=== PATIENT | female | born 1995 | race Two or more races ===

== ENCOUNTER 2020-09-20 15:26 | Outpatient (REF) | payer OTHER, SELFPAY | END 2020-09-20 15:27 | disposition home or self-care (01) | LOC: HO.LAB 15:26 | PROVIDERS: Visit Provider Internal Medicine | DX: Z20.828 Contact with and (suspected) exposure to other viral communicable diseases (principal) | CPT/HCPCS: 87635 ==

== ENCOUNTER 2020-10-07 15:14 | Outpatient (REF) | payer OTHER, SELFPAY | END 2020-10-07 15:15 | disposition home or self-care (01) | LOC: HO.LAB 15:14 | PROVIDERS: Visit Provider Internal Medicine | DX: Z20.828 Contact with and (suspected) exposure to other viral communicable diseases (principal) | CPT/HCPCS: C9803; U0003 ==

== ENCOUNTER 2020-11-20 12:26 | Emergency (ER) | payer OTHER, SELFPAY ==
[2020-11-20 12:45] VITALS: BP 140/84; PULSE 82; RESP 16; TEMP 36.9; O2SAT 96; BMI 32.4
--- NOTE | 2020-11-20 13:33 | PC.NURSE ---
LYNN ALVAREZ AT BEDSIDE WITH DENTAL ASSOCIATE PRESENT
--- NOTE | 2020-11-20 13:47 | XR_ITS ---
EXAMINATION: XR CHEST CLINICAL INFORMATION: Left-sided posterior thoracic COMPARISON: None TECHNIQUE: 2 views of the chest were obtained. FINDINGS: No significant abnormality is noted involving the heart, lungs, mediastinum, bony thorax or soft tissues. XR/XR chest 2V IMPRESSION: Unremarkable examination.
--- NOTE | 2020-11-20 15:12 | ED.BACK ---
HPI - Back Pain/Injury General Chief Complaint: Back Pain/Injury Stated Complaint: shoulder pain Time Seen by Provider: 11/20/20 13:43 Source: patient Mode of arrival: ambulatory Limitations: no limitations History of Present Illness HPI Narrative: 25-year-old female denies Stauffer for past medical history presenting complaint of mid left-sided back pain worsening with certain positions and aches. States she has similar type symptoms in the past with full muscle but also with pneumonia in the past. Denies any cough or URI symptoms. No fever. No chest pain shortness of breath. No abdominal pain nausea vomiting diarrhea. No GI / symptoms. MD elicited complaint: back pain Pertinent past history: prior back pain Onset (ago): day(s) Timing: intermittent Severity: mild Similar Symptoms Previously: Yes Radiation: none Relieving factors: none Associated symptoms: denies other symptoms Work related injury: No Related Data Previous Rx's Medication Instructions Recorded naproxen 500 mg PO BID PRN #20 tab 11/20/20 naproxen 500 mg PO BID PRN #20 tab 11/20/20 Allergies Allergy/AdvReac Type Severity Reaction Status Date / Time acetaminophen [From PERCOCET] Allergy Unknown RASH Unverified 08/15/20 19:46 oxycodone [From PERCOCET] Allergy Unknown RASH Unverified 08/15/20 19:46 oxycodone Allergy Unknown Uncoded 08/01/20 00:00 Review of Systems Review of Systems: Constitutional: No Weight loss, No Fever, No Chills, No Night Sweats, No Fatigue, No Malaise ENT/Mouth: No Hearing loss, No Ear Pain, No Nasal Congestion, No Sinus Pain, No Hoarseness, No sore throat, No Rhinorrhea, No Swallowing Difficulty Eyes: No Eye Pain, No Swelling, No Redness, No Foreign Body, No Discharge, No Vision Changes Cardiovascular: No Chest Pain, No SOB, No Dyspnea on Exertion, No Orthopnea, No Edema, No Palpitations Respiratory: No Cough, No Sputum, No Wheezing, No Smoke Exposure, No Dyspnea Gastrointestinal: No Nausea, No Vomiting, No Diarrhea, No Constipation, No abdominal Pain, No Hematochezia, No Melena Genitourinary: no irregular bleeding, No Dysuria, No Urinary Frequency, No Hematuria, No Urinary Incontinence, No Urgency, No Flank Pain, No Urinary Flow Changes, No Hesitancy Musculoskeletal: No joint pain, No Myalgias, No Joint Swelling, as noted in HPI Skin: No Skin Lesions, No rash Neuro: No Weakness, No Numbness, No Paresthesias, No Loss of Consciousness, No Dizziness, No Headache Psych: No Social Issues Heme/Lymph: No Bruising, No Bleeding,No Lymphadenopathy Endocrine: No Polyuria, No Polydipsia, No Temperature Intolerance Yes all other systems are reviewed and are negative [facility] Past Medical History Surgical History (Updated 11/20/20 @ 12:49 by Sonam Mitchell RN) History of cholecystectomy Social History Social History Advance Directives: No Advance Directives Information Provided: No Physical Exam Vital Signs: Vital Signs: Last Vital Signs Temp 98.4 F 11/20/20 12:45 Pulse 82 11/20/20 12:45 Resp 16 11/20/20 12:45 BP 140/84 H 11/20/20 12:45 Pulse Ox 96 11/20/20 12:45 Body Mass Index 32.4 Reviewed Const: General: cooperative and healthy appearing; No acute distress or intoxicated appearing Nutritional Appearance: average body habitus Orientation/consciousness: patient oriented x3 HENMT: Head: Yes normal to inspection Ears: hearing grossly normal bilaterally Eyes: General: appearance normal, both eyes and all related structures Visual Velázquez: normal visual velázquez by confrontation Neck: Neck: Yes normal visual inspection, No positive Brudzinski's sign, No positive Kernig's sign and No tender Thyroid: Thyroid normal Chest: Chest palpation & inspection: normal inspection of the chest Resp: Effort & Inspection: normal respiratory effort Cardio: Jugular venous distension: no JVD Rhythm: regular rhythm Heart sounds: S1 normal heart sound present and S2 normal heart sound present GI: Inspection: Yes normal to inspection Percussion: Yes normal to percussion Auscultation: normal bowel sounds : General: Yes no CVA tenderness Back/Spine/Pelvis: Back: no CVA tenderness Back/spine/pelvis image: 1. Diffuse reproducible paraspinal muscle pain. No midline, step-off. No obvious induration or rash. Pain is reproducible with palpation and some movement. Skin: General skin exam: no rashes or lesions noted Neuro: General: patient oriented x3 Extrem: General: Yes normal to inspection MDM - Back Pain/Injury Differential Diagnosis Differential diagnosis: Likely strain of lumbar region; Unlikely lumbar radiculopathy, sciatica, renal colic, pyelonephritis, thoracic back pain, AAA and discitis Medical Records Attestation: I reviewed the patient's medical records. Lab Data Attestation: I reviewed the patient's lab results. Imaging Data Chest x-ray: Radiologist's impression: Lucas Mercado 25 F 1995 [place] [id number] XRay Report Signed Patient: Ramos Mercado#: [id number] : 1995Acct:[id number] Age/Sex: 25 / FADM Date: 11/20/20 Loc: HO.ED Attending Dr: Ordering Physician: Rigoberto Grossman NP Date of Service: 11/20/20 Procedure(s): XR chest 2V Accession Number(s): [id number] cc: Rigoberto Grossman NP~ EXAMINATION: XR CHEST CLINICAL INFORMATION: Left-sided posterior thoracic COMPARISON: None TECHNIQUE: 2 views of the chest were obtained. FINDINGS: No significant abnormality is noted involving the heart, lungs, mediastinum, bony thorax or soft tissues. XR/XR chest 2V IMPRESSION: Unremarkable examination. Dictated By:BLANQUITA EDMONDS MD Signed By:<Electronically signed by BLANQUITA EDMONDS MD in OV>11/20/20 1406 DD/ 1347 TD/TT: Client Services Account Manager: Discharge Plan Discharge Clinical Impression: Thoracic back pain Patient Disposition: Home, Self-Care Instructions: Thoracic Back Strain (ED) Additional Instructions: Warm compresses Gentle stretching Naproxen as prescribed Return if any concerns or worsening symptoms Otherwise follow up with your primary care doctor as discussed Thank you Prescriptions: New naproxen 500 mg tablet 500 mg PO BID PRN (Reason: pain) Qty: 20 RF: 0 naproxen 500 mg tablet 500 mg PO BID PRN (Reason: pain) Qty: 20 RF: 0 Referrals: Physician,Unknown [Primary Care Provider] - 1 week (Primary care doctor) Interventions: ED Discharge Assessment Last Done: 11/20/20 15:21 Discharge Date/Time: 11/20/20 15:22
== END 2020-11-20 15:22 | disposition home or self-care (01) ==
PROVIDERS: Emergency Provider Emergency Medicine
DX: M54.6 Pain in thoracic spine (principal)
CPT/HCPCS: 71046; 99283

== ENCOUNTER 2021-07-27 12:41 | Emergency (ER) | payer OTHER, SELFPAY ==
[2021-07-27 13:03] VITALS: PULSE 81; RESP 17; TEMP 36.8; O2SAT 98; BMI 30.7
--- NOTE | 2021-07-27 14:05 | ED.BACK ---
HPI - Back Pain/Injury General Chief Complaint: Back Pain/Injury Stated Complaint: back pain Time Seen by Provider: 07/27/21 14:05 Source: patient Mode of arrival: ambulatory Limitations: no limitations History of Present Illness HPI Narrative: 25 y/o female presenting with right lower back pain and middle right back pain after she lifted her 4 yo son about 2 weeks ago. The pain has been on/off for the 2 weeks. Worse with movement. She felt a spasm in her back as soon as she tried lifting her son that day and it has been recurring when she tries to bend or lift anything heavy. She has not taken any medications for the pain or used any ice or heat to the area. MD elicited complaint: back pain and back injury Onset (ago): week(s) (2) Timing: intermittent and progressively worsening Severity: moderate Similar Symptoms Previously: No Quality: aching and spasming Location: right lower back and right upper back Radiation: none Exacerbating factors: movement and lifting Relieving factors: sitting upright Context: while lifting Associated symptoms: denies other symptoms Work related injury: No Related Data Previous Rx's Medication Instructions Recorded naproxen 500 mg tablet 500 mg PO BID PRN #20 tab 11/20/20 naproxen 500 mg tablet 500 mg PO BID PRN #20 tab 11/20/20 cyclobenzaprine 5 mg tablet 5 mg PO TID PRN #14 tab 07/27/21 ibuprofen 600 mg tablet 600 mg PO Q8H PRN #14 tab 07/27/21 lidocaine 5 % topical patch 1 patch TOPICAL DAILY #15 ea 07/27/21 (Lidoderm) Allergies Allergy/AdvReac Type Severity Reaction Status Date / Time acetaminophen [From PERCOCET] Allergy Unknown RASH Verified 07/27/21 13:03 oxycodone [From PERCOCET] Allergy Unknown RASH Verified 07/27/21 13:03 Review of Systems Review of Systems: Constitutional: No Fever, No Chills s Cardiovascular: No Chest Pain, No SOB Gastrointestinal: No Nausea, No Vomiting, No Diarrhea, No abdominal Pain Genitourinary: No urinary incontinence, no hematuria Musculoskeletal: No joint pain, + Myalgias Skin: No Skin Lesions, No rash Neuro: No Weakness, No Numbness Psych: No Anxiety/Panic, No Depression Heme/Lymph: No Bruising, No Lymphadenopathy PMFSH Past Medical History Surgical History History of cholecystectomy Social History Social History Advance Directives: Yes Advance Directives Information Provided: Yes Advance Directives on File: No Patient : No Physical Exam Vital Signs: Vital Signs: Last Vital Signs Temp 98.2 F 07/27/21 13:03 Pulse 81 07/27/21 13:03 Resp 17 07/27/21 13:03 Pulse Ox 98 07/27/21 13:03 Body Mass Index 30.7 Appearance: Alert. Oriented X3. No acute distress. Eyes: Pupils equal, round and reactive to light. ENT: Pharynx normal. Neck: Normal inspection. Neck supple. CVS: Normal heart rate and rhythm. Pulses normal. Respiratory: No respiratory distress. Breath sounds normal. Abdomen: Soft and nontender. +BS x4 Back: upper lumbar and lower thoracic soft tissue tenderness with some palpable muscle spasm. no CVA tenderness. Skin: Skin warm and dry. Normal skin color. Normal skin turgor. No rashes. Extremities: No lower extremity edema. Normal inspection and palpation of bilateral shoulders. normal active and passive ROM. Neuro: Oriented X 3. No motor deficit. No sensory deficit. Ambulates with steady gait. Course Course Course Narrative: 25 y/o female presenting with right sided back pain after lifting her 4 yo 2 weeks ago. Injury seems to be waxing and waning. Discussed expected course and management of back strain. Will give symptomatic treatment with NSAID, muscle relaxer and lidoderm. She is stable for d/c home with supportive care. Discharge Plan Discharge Clinical Impression: Strain of lumbar region Qualifiers: Encounter type: initial encounter Qualified Code(s): S39.012A - Strain of muscle, fascia and tendon of lower back, initial encounter Patient Disposition: Home, Self-Care Instructions: Low Back Strain (ED), Lower Back Exercises (ED) Additional Instructions: Your pain is most likely due to muscle strain. No bending, lifting or twisting. Use ice several times per day for 20 minutes at a time for the next 48 hours and then change to heat. Take medications as prescribed to help with pain and discomfort. Follow up with your Primary Care Doctor this week. If your pain worsens, if you develop new numbness, tingling, weakness, loss of function or incontinence call 911 or come back to the ER right away for evaluation. Prescriptions: New lidocaine [Lidoderm] 5 % adhesive patch,medicated 1 patch topical DAILY Qty: 15 RF: 0 ibuprofen 600 mg tablet 600 mg PO Q8H PRN (Reason: pain) Qty: 14 RF: 0 cyclobenzaprine 5 mg tablet 5 mg PO TID PRN (Reason: muscle spasm) Qty: 14 RF: 0 No Action naproxen 500 mg tablet 500 mg PO BID PRN (Reason: pain) Qty: 20 RF: 0 naproxen 500 mg tablet 500 mg PO BID PRN (Reason: pain) Qty: 20 RF: 0 Interventions: ED Discharge Assessment Last Done: 07/27/21 14:25 Discharge Date/Time: 07/27/21 14:25
== END 2021-07-27 14:25 | disposition home or self-care (01) ==
PROVIDERS: Emergency Provider Emergency Medicine
DX: S39.012A Strain of muscle, fascia and tendon of lower back, initial encounter (principal); M54.6 Pain in thoracic spine; X50.0XXA Overexertion from strenuous movement or load, initial encounter; X50.1XXA Overexertion from prolonged static or awkward postures, initial encounter; X50.9XXA Other and unspecified overexertion or strenuous movements or postures, initial encounter; Y93.9 Activity, unspecified; Y92.9 Unspecified place or not applicable; Y99.9 Unspecified external cause status; Z79.899 Other long term (current) drug therapy
CPT/HCPCS: 99283

== ENCOUNTER 2021-08-05 09:30 | Emergency (ER) | payer OTHER, SELFPAY ==
[2021-08-05 09:39] VITALS: BP 127/94; BP 130/90; PULSE 92; PULSE 98; RESP 16; TEMP 36.7; O2SAT 100; O2SAT 99; BMI 28.5
[2021-08-05] MEDS: Cyclobenzaprine HCl 5 MG TABLET PO (09:57)
[2021-08-05] MEDS: Ketorolac Tromethamine 15 MG/ML VIAL 30 MG IM (09:58)
[2021-08-05] MEDS: Lidocaine 4 % Patch ADH..PATCH 1 PATCH TRANSDERMA (09:59)
--- NOTE | 2021-08-05 10:11 | ED.GENADULT ---
HPI - General Adult General Chief complaint: General Medical Stated complaint: BACK PAIN Time Seen by Provider: 08/05/21 09:44 Source: patient Mode of arrival: ambulatory History of Present Illness HPI narrative: 25-year-old female with no significant past medical history presenting to the ED complaining of a left-sided neck/shoulder/upper back/scapular pain radiating down left arm S/P lifting body weight trying to get out of bed this morning. Admits to similar symptoms in the past. Pain worse with movement. direct trauma/falls or injury. Reports associated paresthesias. Denies weakness, urinary incontinence/retention, CP Onset (ago): hour(s) Related Data Previous Rx's Medication Instructions Recorded naproxen 500 mg tablet 500 mg PO BID PRN #20 tab 11/20/20 naproxen 500 mg tablet 500 mg PO BID PRN #20 tab 11/20/20 cyclobenzaprine 5 mg tablet 5 mg PO TID PRN #14 tab 07/27/21 ibuprofen 600 mg tablet 600 mg PO Q8H PRN #14 tab 07/27/21 lidocaine 5 % topical patch 1 patch TOPICAL DAILY #15 ea 07/27/21 (Lidoderm) cyclobenzaprine 5 mg tablet 5 mg PO Q8H PRN 5 Days #14 tab 08/05/21 lidocaine 5 % topical patch 1 patch TOPICAL DAILY PRN #30 ea 08/05/21 (Lidoderm) MDD remove after 12 hours naproxen 500 mg tablet 500 mg PO BID PRN 10 Days #20 tab 08/05/21 Allergies Allergy/AdvReac Type Severity Reaction Status Date / Time acetaminophen [From PERCOCET] Allergy Unknown RASH Verified 07/27/21 13:03 oxycodone [From PERCOCET] Allergy Unknown RASH Verified 07/27/21 13:03 Review of Systems Review of Systems: Constitutional: No Fever, No Chills ENT/Mouth: No Ear Pain, No sore throat, No Rhinorrhea, No Swallowing Difficulty Cardiovascular: No Chest Pain, No SOB Respiratory: No Cough Gastrointestinal: No Nausea, No Vomiting, No Abdominal pain Genitourinary: No Dysuria, No Urinary Frequency, No Hematuria, No Urinary Incontinence/retention Musculoskeletal: +joint pain, No Myalgias, No Joint Swelling Skin: No Skin Lesions, No rash Neuro: No Weakness, No Numbness, No Paresthesias Yes all other systems are reviewed and are negative Neurologic: Denies Sensory deficit (Neuro) [facility] Past Medical History Attestation statement: The following information was validated with the patient. Surgical History History of cholecystectomy Social History Social History Advance Directives: No Advance Directives Information Provided: No Patient : No Physical Exam Vital Signs: Vital Signs: Last Vital Signs Temp 98.1 F 08/05/21 09:39 Pulse 92 08/05/21 09:39 Resp 16 08/05/21 09:39 BP 127/94 H 08/05/21 09:39 Pulse Ox 99 08/05/21 09:39 Body Mass Index 28.5 Const: General: cooperative and healthy appearing Orientation/consciousness: patient oriented x3 Limitations: no limitations HENMT: Head: Yes normal to inspection and Yes atraumatic Ears: hearing grossly normal bilaterally General nose exam: Normal external nose present Face and sinus: Yes normal facial exam Eyes: General: appearance normal, both eyes and all related structures EOM: EOMs intact bilaterally Neck: Other: Midline cervical spinous tenderness to palpation. + left-sided paraspinal/MSK neck tenderness to palpation and left trapezius muscle tenderness to palpation Neck: Yes normal visual inspection Resp: Effort & Inspection: normal respiratory effort and no respiratory distress Cardio: Rate: regular rate Peripheral pulses: radial pulses present GI: Inspection: Yes normal to inspection Palpation (GI): Soft to palpation, nontender, no guarding and not rigid Back/Spine/Pelvis: Other: No midline thoracic/lumbar spinous tenderness or step-offs/deformity. + left-sided upper thoracic/scapular tenderness to palpation reproducing subjective complaints Skin: Rashes: no rashes Wounds: no wounds Neuro: General: patient oriented x3, tone normal and moves all extremities Motor exam (neuro): 5/5 motor strength present throughout Sensory Exam: No Sensory deficit (Neuro) Extrem: General: Yes normal to inspection Medical Decision Making MDM Narrative Medical decision making narrative: 25-year-old female with no significant past medical history presenting to the ED complaining of a left-sided neck/shoulder/upper back/scapular pain radiating down left arm S/P lifting body weight trying to get out of bed this morning. On exam VSS, NAD/ill-appearing, physical exam as above. Likely MSK pain/strain/spasming. Low concern for cauda equina, cord compression, ACS, pneumonia, or PE. Plan: Symptomatic treatment, anticipate DC home Discharge Plan Discharge Clinical Impression: Acute neck pain Back pain, thoracic Qualifiers: Chronicity: acute Back pain laterality: left Qualified Code(s): M54.6 - Pain in thoracic spine Patient Disposition: Home, Self-Care Instructions: Neck Pain (ED), Thoracic Pain (ED) Additional Instructions: Your pain is likely musculoskeletal Flexeril is a muscle relaxer, take at night as it makes you drowsy, do not drive, drink alcohol, or operate machinery while taking it Naproxen as an anti-inflammatory / pain medication, take with food Lidoderm patches are numbing patches, apply to painful area If symptoms persist or worsen, pain becomes unbearable, you developed urinary retention or incontinence, or weakness return to the ED Prescriptions: New lidocaine [Lidoderm] 5 % adhesive patch,medicated 1 patch topical DAILY MDD remove after 12 hours PRN (Reason: pain) Qty: 30 RF: 0 naproxen 500 mg tablet 500 mg PO BID PRN (Reason: pain) 10 Days Qty: 20 RF: 0 cyclobenzaprine 5 mg tablet 5 mg PO Q8H PRN (Reason: pain (scale score 7-10)) 5 Days Qty: 14 RF: 0 No Action lidocaine [Lidoderm] 5 % adhesive patch,medicated 1 patch topical DAILY Qty: 15 RF: 0 ibuprofen 600 mg tablet 600 mg PO Q8H PRN (Reason: pain) Qty: 14 RF: 0 cyclobenzaprine 5 mg tablet 5 mg PO TID PRN (Reason: muscle spasm) Qty: 14 RF: 0 naproxen 500 mg tablet 500 mg PO BID PRN (Reason: pain) Qty: 20 RF: 0 naproxen 500 mg tablet 500 mg PO BID PRN (Reason: pain) Qty: 20 RF: 0 Referrals: Physician,Unknown [Primary Care Provider] - 2 days
== END 2021-08-05 10:36 | disposition home or self-care (01) ==
PROVIDERS: Emergency Provider Emergency Medicine
DX: M54.2 Cervicalgia (principal); M54.6 Pain in thoracic spine
CPT/HCPCS: 96372; 99283; 99284; J1885

== ENCOUNTER 2022-09-22 14:49 | Emergency (ER) | payer MEDICAID, SELFPAY ==
[2022-09-22 16:36] VITALS: BP 116/72; PULSE 68; RESP 18; TEMP 36.2; O2SAT 99; BMI 31.6
== END 2022-09-22 21:16 | disposition left against medical advice (07) ==
LOC: HO.ED 21:00
PROVIDERS: Emergency Provider Emergency Medicine; PCP Internal Medicine
DX: R51.9 Headache, unspecified (principal); R10.9 Unspecified abdominal pain
CPT/HCPCS: 99281

== ENCOUNTER 2022-09-30 14:25 | Outpatient (REF) | payer MEDICAID, SELFPAY ==
[2022-09-30 14:45] LABS: MANUAL DIFF FLAG NO
[2022-09-30 15:00] LABS: Basophils Percent Auto 0.5 % (0-2); Eosinophils Absolute Auto 0.2 X10*3/uL (0.0-0.4); Eosinophils Percent Auto 2.2 % (0-4); Hematocrit 38.6 % (37.0-47.0); Hemoglobin 12.8 g/dl (12.0-16.0); Imm Gran Abs Auto 0.02 X10*3/uL (0.00-0.03); Imm Gran Pct Auto 0.3 % (0.0-0.4); Lymphocytes Absolute Auto 2.7 X10*3/uL (1.2-4.9); Lymphocytes Percent Auto 35.6 % (20-40); Mean Corpuscular HGB Conc 33.2 g/dl (31.0-35.0); Mean Corpuscular Hemoglobin 29.4 pg (27.0-33.0); Mean Corpuscular Volume 88.7 fL (80.0-98.0); Monocytes Absolute Auto 0.6 X10*3/uL (0.1-1.2); Neutrophils Percent Auto 53.4 % (45-73); Platelet Count 251 X10*3/uL (160-400); Red Blood Count 4.35 X10*6/uL (4.20-5.50); Red Cell Distribution Width 12.3 % (11.0-16.0); White Blood Count 7.6 X10*3/uL (4.8-10.8)
[2022-09-30 15:31] LABS: Alanine Aminotransferase 15 U/L (0-31); Albumin Level 4.3 g/dL (3.5-5.0); Alkaline Phosphatase 51 U/L (39-117); Anion Gap 11 (12-20); Aspartate Amino Transferase 16 U/L (5-31); Bilirubin Total 0.6 mg/dL (0.0-1.0); Blood Urea Nitrogen 15 mg/dL (9-16); Calcium 9.7 mg/dL (8.4-10.2); Carbon Dioxide 28 mmol/L (22-29); Chloride 104 mmol/L (96-108); Estimated Glomerular Filt Rate > 60; Glucose Random 84 mg/dL (60-115); Potassium 4.1 mmol/L (3.3-5.1); Rheumatoid Factor < 15.0 IU/mL (<15.0); Sodium 139 mmol/L (135-145); Total Protein 7.3 g/dL (6.5-8.0)
[2022-09-30 15:39] LABS: Erythrocyte Sedimentation Rate 7 MM/HR (0-20)
[2022-09-30 15:53] LABS: Thyroid Stimulating Hormone 1.75 uIU/mL (0.32-4.0)
[2022-09-30 18:20] LABS: CT PCR NOT DETECTED (Not Detect.); NG PCR NOT DETECTED (Not Detect.)
[2022-10-03 11:51] LABS: ANA Pattern 2 Nuclear, Homogeneous; ANA Titer 2 1:40 titer; Anti Nuclear Antibody Screen POSITIVE (NEGATIVE); Anti Nuclear Antibody Titer 1:40 titer
== END 2022-09-30 14:26 | disposition home or self-care (01) ==
LOC: HO.LAB 14:25
PROVIDERS: PCP Internal Medicine; Visit Provider Internal Medicine
DX: Z00.00 Encounter for general adult medical examination without abnormal findings (principal); M13.0 Polyarthritis, unspecified; Z11.3 Encounter for screening for infections with a predominantly sexual mode of transmission; Z12.4 Encounter for screening for malignant neoplasm of cervix
CPT/HCPCS: 80053; 84443; 85025; 85652; 86038; 86039; 86431; 87491; 87591

== ENCOUNTER 2023-11-14 00:29 | Emergency (ER) | payer MEDICAID, SELFPAY ==
--- NOTE | ~2023-11-14 | US_ITS ---
EXAMINATION: US PELVIS CLINICAL INFORMATION: Left lower quadrant abdominal pain COMPARISON: CT 11/14/2023. TECHNIQUE: Ultrasound of the pelvis is performed using both transabdominal and transvaginal transducers along with Doppler. Transvaginal imaging is performed due to inadequate visualization transabdominally. FINDINGS: Uterus: The uterus is anteverted, anteflexed and measures 7.8 x 3.1 x 4.8 cm. The double wall endometrial thickness is 2 mm. The uterus is smooth in contour and has normal myometrial echogenicity. No visible fibroid. Adnexa: Both ovaries are visualized. There is normal color flow to the adnexa. There is no ovarian torsion. There is no pelvic ascites or fluid collection. Right ovary lies midline posterior uterus and measures 3.8 x 2.1 x 2.9 cm with volume 12.0 mL. There is anechoic cyst measuring 3.0 x 1.8 x 2.5 cm. Left ovary measures 2.4 x 1.5 x 2.1 cm and volume 4.0 mL. There is normal arterial and venous color and Doppler flow seen to both ovaries. There is small amount of free fluid in cul-de-sac. US/US pelvic and transvaginal IMPRESSION: Small simple cyst right ovary. Unremarkable left ovary and uterus. Small amount of free fluid in the cul-de-sac.
--- NOTE | ~2023-11-14 | US_ITS ---
EXAMINATION: US PELVIS CLINICAL INFORMATION: Left lower quadrant abdominal pain COMPARISON: CT 11/14/2023. TECHNIQUE: Ultrasound of the pelvis is performed using both transabdominal and transvaginal transducers along with Doppler. Transvaginal imaging is performed due to inadequate visualization transabdominally. FINDINGS: Uterus: The uterus is anteverted, anteflexed and measures 7.8 x 3.1 x 4.8 cm. The double wall endometrial thickness is 2 mm. The uterus is smooth in contour and has normal myometrial echogenicity. No visible fibroid. Adnexa: Both ovaries are visualized. There is normal color flow to the adnexa. There is no ovarian torsion. There is no pelvic ascites or fluid collection. Right ovary lies midline posterior uterus and measures 3.8 x 2.1 x 2.9 cm with volume 12.0 mL. There is anechoic cyst measuring 3.0 x 1.8 x 2.5 cm. Left ovary measures 2.4 x 1.5 x 2.1 cm and volume 4.0 mL. There is normal arterial and venous color and Doppler flow seen to both ovaries. There is small amount of free fluid in cul-de-sac. US/US pelvic ovarian doppler IMPRESSION: Small simple cyst right ovary. Unremarkable left ovary and uterus. Small amount of free fluid in the cul-de-sac.
--- NOTE | ~2023-11-14 | CT_ITS ---
EXAMINATION: CT ABDOMEN AND PELVIS WITHOUT CONTRAST CLINICAL INFORMATION: Bilateral flank pain COMPARISON: Abdominal ultrasound June 29, [address] abdomen pelvis November 02, 2019 TECHNIQUE: Multidetector volumetric imaging was performed from the superior aspect of the liver through the pubic symphysis. Sagittal and coronal reformatted images were obtained on the technologist's workstation. This CT examination was performed using dose optimization techniques as appropriate, variously including the following: *Automated exposure control *Adjustment of mA and/or kV according to patient size (this includes techniques or standardized protocols for targeted exams where dose is matched to indication/reason for exam; i.e. extremities or head) *Use of iterative reconstruction technique DLP: 520 mGy-cm FINDINGS: Visualized lung bases are well aerated. The liver is normal in size. The gallbladder is surgically absent. The pancreas, spleen and adrenal glands are unremarkable. Symmetrically sized kidneys. No renal calculi or hydronephrosis of either kidney. Normal caliber loops of small and large bowel. Normal appendix. Mild colonic stool burden. There are a few mildly prominent but nonpathologically enlarged lymph nodes within the right lower abdomen, nonspecific. Normal caliber abdominal aorta. No retroperitoneal lymphadenopathy. The bladder is normal in appearance. Unremarkable CT appearance of the uterus. 2.5 x 2.9 x 3.0 cm hypodense structure abutting the posterior lower uterine segment/cervix, nonspecific. No gross free pelvic fluid. Shotty bilateral inguinal lymph nodes. No acute osseous abnormality. CT/CT abdomen pelvis wo IV con IMPRESSION: 1. No renal calculi or hydronephrosis of either kidney. 2. 3.0 cm hypodense structure abutting the posterior lower uterine segment/cervix. This is a nonspecific finding but may represent a a cystic adnexal structure. Further evaluation can be obtained with pelvic ultrasound as clinically indicated. 3. There are a few mildly prominent but nonpathologically enlarged lymph nodes within the right lower abdomen, nonspecific. Fleischner guidelines were followed.
--- NOTE | ~2023-11-14 | CT_ITS ---
EXAMINATION: CT HEAD WITHOUT CONTRAST CLINICAL INFORMATION: AMS, pain. COMPARISON: None available. TECHNIQUE: Contiguous axial imaging was performed from the skull base to vertex without intravenous administration of contrast. This CT examination was performed using dose optimization techniques as appropriate, variously including the following: *Automated exposure control *Adjustment of mA and/or kV according to patient size (this includes techniques or standardized protocols for targeted exams where dose is matched to indication/reason for exam; i.e. extremities or head) *Use of iterative reconstruction technique DLP: 671 mGy-cm FINDINGS: There is no acute intra-axial, extra-axial bleed, masses, collection or midline shift. No acute infarction evolution. The lund to white matter differentiation is maintained normal. The lateral ventricles are symmetrical in size and configuration without enlargement. Bone windows reveal no calvarial abnormality. There is no scalp soft tissue abnormality. Bilateral paranasal sinuses and mastoid air cells are well-aerated. CT/CT head/brain wo IV con IMPRESSION: No acute intracranial process seen.
[2023-11-14 00:33] VITALS: BP 146/80; PULSE 111; O2SAT 99
[2023-11-14 00:36] VITALS: BP 144/94; PULSE 103; RESP 18; TEMP 37.7; O2SAT 98; BMI 31.6
--- NOTE | 2023-11-14 01:08 | MHC.EDTECH ---
Patient brought into triage area,labs,SARS/FLU/RSV and a Urine were collected and sent to lab,patient brought back to the waiting room
[2023-11-14 01:18] LABS: MANUAL DIFF FLAG NO
[2023-11-14 01:19] LABS: Basophils Absolute Auto 0.1 X10*3/uL (0.0-0.2); Basophils Percent Auto 0.4 % (0-2); Eosinophils Percent Auto 0.2 % (0-4); Hematocrit 38.3 % (37.0-47.0); Hemoglobin 12.9 g/dl (12.0-16.0); Imm Gran Abs Auto 0.05 X10*3/uL (0.00-0.03); Imm Gran Pct Auto 0.3 % (0.0-0.4); Lymphocytes Absolute Auto 3.3 X10*3/uL (1.2-4.9); Lymphocytes Percent Auto 19.9 % (20-40); Mean Corpuscular HGB Conc 33.7 g/dl (31.0-35.0); Mean Corpuscular Hemoglobin 28.9 pg (27.0-33.0); Mean Corpuscular Volume 85.9 fL (80.0-98.0); Mean Platelet Volume 10.9 fL (9.4-12.3); Monocytes Absolute Auto 1.4 X10*3/uL (0.1-1.2); Monocytes Percent Auto 8.3 % (2-11); Neutrophils Absolute Auto 11.6 x10*3/uL (2.0-8.3); Neutrophils Percent Auto 70.9 % (45-73); Platelet Count 239 X10*3/uL (160-400); Red Blood Count 4.46 X10*6/uL (4.20-5.50); Red Cell Distribution Width 12.7 % (11.0-16.0); White Blood Count 16.4 X10*3/uL (4.8-10.8)
[2023-11-14 01:24] LABS: Appearance Urine Cloudy; Color Urine Yellow; Glucose Urine UA Negative (Negative); Leukocyte Esterase Urine Trace (Negative); Nitrite Urine Negative (Negative); PH 6.5 (5.0-9.0); Specific Gravity - Urine 1.015 (1.005-1.025); UMIC TRIGGER UACC YES; Urine Blood Negative (Negative); Urine Ketones Trace mg/dL (Negative); Urine Protein Negative (Neg-Trace)
[2023-11-14 01:26] LABS: UPreg QC Valid YES; Urine Pregnancy NEGATIVE (NEGATIVE)
[2023-11-14 01:27] LABS: Bacteria Urine Trace (None Seen); Hyaline Casts Urine 0-2 /LPF (0-2); RBC Urine 0-2 /HPF (0-2); UACC Culture Trigger YES
[2023-11-14 01:33] LABS: Alanine Aminotransferase 18 U/L (0-31); Albumin Level 4.2 g/dL (3.5-5.0); Alkaline Phosphatase 54 U/L (39-117); Anion Gap 13 (12-20); Aspartate Amino Transferase 18 U/L (5-31); Bilirubin Total 0.9 mg/dL (0.0-1.0); Blood Urea Nitrogen 8 mg/dL (9-16); Carbon Dioxide 21 mmol/L (22-29); Chloride 106 mmol/L (96-108); Creatinine Clr Calc Pharmacy 94.3; Estimated Glomerular Filt Rate > 60; Glucose Random 94 mg/dL (60-115); Potassium 3.3 mmol/L (3.3-5.1); Sodium 137 mmol/L (135-145); Total Protein 7.6 g/dL (6.5-8.0)
[2023-11-14 02:29] VITALS: BP 120/83; PULSE 100; RESP 18; TEMP 36.8; O2SAT 99
[2023-11-14 02:54] LABS: Influenza A PCR NEGATIVE (Negative); Influenza B PCR NEGATIVE (Negative); Resp Syncy Virus RNA Qual PCR NEGATIVE (Negative); SARS COV2 PCR INHOUSE NEGATIVE (Negative)
[2023-11-14 04:44] VITALS: BP 106/73; PULSE 94; RESP 18; TEMP 36.8; O2SAT 97
[2023-11-14 07:15] LABS: HCG Quantitative < 2 mIU/mL
--- NOTE | 2023-11-14 07:22 | ED.GENADULT ---
HPI - General Adult General Chief complaint: Abdominal Pain Stated complaint: FLANK PAIN Time Seen by Provider: 11/14/23 06:35 Source: patient and EMS Mode of arrival: EMS Limitations: other (Poor historian) History of Present Illness HPI narrative: 28-year-old female presents to the emergency department via ambulance for complaints of kidney pain for the past 12 hours she reports left-sided flank pain with radiation to her abdomen pain is intermittent, sharp, severe, patient has history of kidney stones and this feels similar. Patient also complaining of nausea, fatigue, malaise, congestion, sore throat. Denies recent sick contacts. Patient denies chest pain, shortness of breath, vomiting, diarrhea, vision changes, headache and weakness. Related Data Previous Rx's Medication Instructions Recorded naproxen 500 mg tablet 500 mg PO BID PRN pain #20 tabs 11/20/20 naproxen 500 mg tablet 500 mg PO BID PRN pain #20 tabs 11/20/20 cyclobenzaprine 5 mg tablet 5 mg PO TID PRN muscle spasm #14 07/27/21 tabs ibuprofen 600 mg tablet 600 mg PO Q8H PRN pain #14 tabs 07/27/21 lidocaine 5 % topical patch 1 patch topical DAILY #15 ea 07/27/21 (Lidoderm) cyclobenzaprine 5 mg tablet 5 mg PO Q8H PRN pain (scale score 08/05/21 7-10) 5 days #14 tabs lidocaine 5 % topical patch 1 patch topical DAILY PRN pain #30 08/05/21 (Lidoderm) ea naproxen 500 mg tablet 500 mg PO BID PRN pain 10 days #20 08/05/21 tabs ondansetron 4 mg disintegrating 4 mg PO Q6H PRN nausea and 11/14/23 tablet vomiting #14 tabs Allergies Allergy/AdvReac Type Severity Reaction Status Date / Time oxycodone [From PERCOCET] Allergy Unknown RASH Verified 11/14/23 00:49 Review of Systems Review of Systems: Constitutional : No Weight loss, No Fever, No Chills, No Fatigue, No Malaise ENT/Mouth : No sore throat, No Rhinorrhea Eyes: No Eye Pain, No Swelling, No Redness Cardiovascular : No Chest Pain, No SOB, No Dyspnea on Exertion, No Orthopnea, No Edema, No Palpitations Respiratory : No Cough, No Sputum, No Wheezing Gastrointestinal : No Nausea, No Vomiting, No Diarrhea, No Constipation, No abdominal Pain, No Hematochezia, No Melena Genitourinary : No Dysuria, No Urinary Frequency, No Hematuria, Musculoskeletal : No joint pain, No Myalgias, No Joint Swelling, + flank pain Skin : No Skin Lesions, No rash Neuro : No Weakness, No Numbness, No Dizziness, No Headache Psych : No Anxiety/Panic, No Depression All other systems reviewed and are negative Yes all other systems are reviewed and are negative [facility] Past Medical History Attestation statement: The following information was validated with the patient. Source: old records reviewed and nursing notes reviewed Surgical History History of cholecystectomy Social History Social History Advance Directives: No Advance Directives Information Provided: No Physical Exam ED Vital Signs: Vital Signs - 24 hr 11/14/23 00:36 11/14/23 02:29 11/14/23 02:29 Temperature 99.8 F 98.3 F 98.3 F Pulse Rate 103 H 100 100 Respiratory Rate 18 18 18 Blood Pressure 144/94 H 120/83 120/83 Pulse Oximetry 98 99 99 Oxygen Delivery Method Room Air Room Air Room Air 11/14/23 04:44 11/14/23 07:36 Temperature 98.3 F 98.2 F Pulse Rate 94 87 Respiratory Rate 18 16 Blood Pressure 106/73 120/82 Pulse Oximetry 97 97 Oxygen Delivery Method Room Air Room Air BMI result Body Mass Index 31.6 vss Appearance: Alert.? Oriented X3.? No acute distress.? Head: Normocephalic, atraumatic, no step-offs or deformities Eyes: Pupils equal, round and reactive to light.? ENT: Pharynx normal.? Neck: Normal inspection.? Neck supple.? CVS: Normal heart rate and rhythm.? Pulses normal.? Respiratory: No respiratory distress.? Breath sounds normal.? Abdomen: Soft and diffuse abdominal tender.? Skin: Skin warm and dry.? Normal skin color.? Normal skin turgor.? Extremities: No lower extremity edema.? No calf ttp. 5/5 strength to bilateral upper and lower extremities Back: No midline tenderness, no C-spine tenderness, full range of motion, no CVA tenderness bilaterally Neuro: Oriented X 3.? No motor deficit.? No sensory deficit. CN 2-12 intact Course Reevaluation(s) Reevaluation #1: CBC with leukocytosis 16.4, no left shift this could be reactive due to dry heaving/nausea/vomiting. Chemistry unremarkable. HCG negative. Transaminases normal. UA without infection. Urine negative. Patient's Monospot negative, strep negative, flu, COVID, RSV negative. CT abdomen and pelvis no renal calculi or hydronephrosis. 3 cm hypodense structure obstructing the posterior lower uterine segment/cervix nonspecific finding with could represent cystic adnexal structure. Ultrasound ordered. Pelvic ultrasound with small simple cyst right ovary. Unremarkable left ovary and uterus. Small amount of fluid in cul-de-sac. There is no ovarian torsion. Patient was sitting on the ground, crawling around the room, bizarre behavior, with vomiting, head CT ordered for altered mental status. Time: 10:48 Reevaluation #2: Zofran and additional pain meds ordered. Time: 12:14 Reevaluation #3: CT head unremarkable. Patient alert oriented x3. Patient has not had any more pain, nausea or vomiting. Patient to be discharged home with nausea medicine this is likely viral. Educated patient on diagnosis and treatment plan, answered all question, patient verbalizes understanding. At this time patient will be discharged home, advised to return with new or worsening symptoms. Educated on worrisome signs and symptoms and when to return. At this time I feel comfortable discharge home. Time: 13:35 Medications Administered Discontinued Medications Generic Name Dose Route Start Last Admin Trade Name Anastacio PRN Reason Stop Dose Admin Morphine Sulfate 2 mg 11/14/23 09:29 11/14/23 09:57 Morphine Sulfate 2 Mg/Ml Cartridge IVPUSH 11/14/23 09:30 2 mg ONCE ONE Administration Protocol Ondansetron HCl 4 mg 11/14/23 10:44 11/14/23 10:56 Ondansetron Hcl 4 Mg/2 Ml Vial IVPUSH 11/14/23 10:45 4 mg ONCE ONE Administration Medical Decision Making Medical Decision Making [facility] Narrative: 28-year-old female presents with complaints of left flank pain with radiation to abdomen, also reporting fatigue, malaise, congestion, sore throat. Physical exam diffuse abdominal tenderness. Normoactive bowel sounds. Concerns for viral illness versus renal calculi versus obstructing uropathy. Unlikely pancreatitis, cholecystitis, appendicitis, diverticulitis, obstruction. Will rule out strep throat although unlikely. Will also rule out mononucleosis, metabolic derangements, anemia, Plan at this time labs, imaging, urine. Patient is having episodes of vomiting while in the depart Differential Diagnosis Differential Diagnoses: The differential diagnosis associated with the presentation includes Concerns for viral illness versus renal calculi versus obstructing uropathy. Unlikely pancreatitis, cholecystitis, appendicitis, diverticulitis, obstruction. Will rule out strep throat although unlikely. Will also rule out mononucleosis, metabolic derangements, anemia, Admission/Observation Consideration of admission/observation: Escalation of care including admission/observation considered Lab Data MDM Lab Attestation statement: I reviewed the patient's lab results. 11/14/23 01:06 11/14/23 01:06 Labs: Lab Results 11/14/23 11/14/23 11/14/23 Range/Units 01:06 07:06 07:35 WBC 16.4 H (4.8-10.8) X10*3/uL RBC 4.46 (4.20-5.50) X10*6/uL Hgb 12.9 (12.0-16.0) g/dl Hct 38.3 (37.0-47.0) % MCV 85.9 (80.0-98.0) fL MCH 28.9 (27.0-33.0) pg MCHC 33.7 (31.0-35.0) g/dl RDW 12.7 (11.0-16.0) % Plt Count 239 (160-400) X10*3/uL MPV 10.9 (9.4-12.3) fL Immature Gran % (Auto) 0.3 (0.0-0.4) % Neut % (Auto) 70.9 (45-73) % Lymph % (Auto) 19.9 L (20-40) % Garfield % (Auto) 8.3 (2-11) % Eos % (Auto) 0.2 (0-4) % Baso % (Auto) 0.4 (0-2) % Lymph # (Auto) 3.3 (1.2-4.9) X10*3/uL Garfield # (Auto) 1.4 H (0.1-1.2) X10*3/uL Eos # (Auto) 0.0 (0.0-0.4) X10*3/uL Baso # (Auto) 0.1 (0.0-0.2) X10*3/uL Abs Immat Gran (auto) 0.05 H (0.00-0.03) X10*3/uL Absolute Neuts (auto) 11.6 H (2.0-8.3) x10*3/uL Absolute Nucleated RBC 0.000 (0.0-0.012) X10*3/uL Nucleated RBC % (auto) 0.0 (0.0-0.2) /100WBC Sodium 137 (135-145) mmol/L Potassium 3.3 (3.3-5.1) mmol/L Chloride 106 (96-108) mmol/L Carbon Dioxide 21 L (22-29) mmol/L Anion Gap 13 (12-20) BUN 8 L (9-16) mg/dL Creatinine 0.69 (0.5-1.4) mg/dL Estim Creat Clear Calc 94.3 Estimated GFR > 60 Random Glucose 94 (60-115) mg/dL Calcium 9.0 D (8.4-10.2) mg/dL Total Bilirubin 0.9 (0.0-1.0) mg/dL AST 18 (5-31) U/L ALT 18 (0-31) U/L Alkaline Phosphatase 54 (39-117) U/L Total Protein 7.6 (6.5-8.0) g/dL Albumin 4.2 (3.5-5.0) g/dL Beta HCG, Quant < 2 mIU/mL Urine Color Yellow Urine Appearance Cloudy Urine pH 6.5 (5.0-9.0) Ur Specific [place] 1.015 (1.005-1.025) Urine Protein Negative (Neg-Trace) mg/dL Urine Glucose (UA) Negative (Negative) mg/dL Urine Ketones Trace (Negative) mg/dL Urine Blood Negative (Negative) Urine Nitrite Negative (Negative) Ur Leukocyte Esterase Trace H (Negative) Urine RBC 0-2 (0-2) /HPF Urine WBC 11-20 H (0-5) /HPF Ur Squamous Epith Cells 11-20 (0-2) /HPF Urine Bacteria Trace (None Seen) Hyaline Casts 0-2 (0-2) /LPF Urine Test NEGATIVE (NEGATIVE) Urine Opiates Screen Not Detected (Not Detect) Urine Fentanyl Screen Not Detected (Not Detect) Ur Barbiturates Screen Not Detected (Not Detect) Ur Phencyclidine Scrn Not Detected (Not Detect) Ur Amphetamines Screen Not Detected (Not Detect) U Benzodiazepines Scrn Not Detected (Not Detect) Urine Cocaine Screen Not Detected (Not Detect) U Marijuana (THC) Screen Not Detected (Not Detect) Monoscreen (Negative) Influenza Type A (PCR) NEGATIVE (Negative) Influenza Type B (PCR) NEGATIVE (Negative) RSV RNA Qual (PCR) NEGATIVE (Negative) SARS-CoV-2 RNA (RT-PCR) NEGATIVE (Negative) S. pyogenes GrpA MARIZA Negative (Negative) 11/14/23 Range/Units 09:43 WBC (4.8-10.8) X10*3/uL RBC (4.20-5.50) X10*6/uL Hgb (12.0-16.0) g/dl Hct (37.0-47.0) % MCV (80.0-98.0) fL MCH (27.0-33.0) pg MCHC (31.0-35.0) g/dl RDW (11.0-16.0) % Plt Count (160-400) X10*3/uL MPV (9.4-12.3) fL Immature Gran % (Auto) (0.0-0.4) % Neut % (Auto) (45-73) % Lymph % (Auto) (20-40) % Garfield % (Auto) (2-11) % Eos % (Auto) (0-4) % Baso % (Auto) (0-2) % Lymph # (Auto) (1.2-4.9) X10*3/uL Garfield # (Auto) (0.1-1.2) X10*3/uL Eos # (Auto) (0.0-0.4) X10*3/uL Baso # (Auto) (0.0-0.2) X10*3/uL Abs Immat Gran (auto) (0.00-0.03) X10*3/uL Absolute Neuts (auto) (2.0-8.3) x10*3/uL Absolute Nucleated RBC (0.0-0.012) X10*3/uL Nucleated RBC % (auto) (0.0-0.2) /100WBC Sodium (135-145) mmol/L Potassium (3.3-5.1) mmol/L Chloride (96-108) mmol/L Carbon Dioxide (22-29) mmol/L Anion Gap (12-20) BUN (9-16) mg/dL Creatinine (0.5-1.4) mg/dL Estim Creat Clear Calc Estimated GFR Random Glucose (60-115) mg/dL Calcium (8.4-10.2) mg/dL Total Bilirubin (0.0-1.0) mg/dL AST (5-31) U/L ALT (0-31) U/L Alkaline Phosphatase (39-117) U/L Total Protein (6.5-8.0) g/dL Albumin (3.5-5.0) g/dL Beta HCG, Quant mIU/mL Urine Color Urine Appearance Urine pH (5.0-9.0) Ur Specific [place] (1.005-1.025) Urine Protein (Neg-Trace) mg/dL Urine Glucose (UA) (Negative) mg/dL Urine Ketones (Negative) mg/dL Urine Blood (Negative) Urine Nitrite (Negative) Ur Leukocyte Esterase (Negative) Urine RBC (0-2) /HPF Urine WBC (0-5) /HPF Ur Squamous Epith Cells (0-2) /HPF Urine Bacteria (None Seen) Hyaline Casts (0-2) /LPF Urine Test (NEGATIVE) Urine Opiates Screen (Not Detect) Urine Fentanyl Screen (Not Detect) Ur Barbiturates Screen (Not Detect) Ur Phencyclidine Scrn (Not Detect) Ur Amphetamines Screen (Not Detect) U Benzodiazepines Scrn (Not Detect) Urine Cocaine Screen (Not Detect) U Marijuana (THC) Screen (Not Detect) Monoscreen Negative (Negative) Influenza Type A (PCR) (Negative) Influenza Type B (PCR) (Negative) RSV RNA Qual (PCR) (Negative) SARS-CoV-2 RNA (RT-PCR) (Negative) S. pyogenes GrpA MARIZA (Negative) Independent Interpretation I performed an independent interpretation of an: Ultrasound (US/US pelvic ovarian doppler IMPRESSION: Small simple cyst right ovary. Unremarkable left ovary and uterus. Small amount of free fluid in the cul-de-sac.) and CT Scan (CT/CT abdomen pelvis wo IV con IMPRESSION: 1. No renal calculi or hydronephrosis of either kidney. 2. 3.0 cm hypodense structure abutting the posterior lower uterine segment/cervix. This is a nonspecific finding but may represent a a cystic adnexal structure. Further evaluation can be obtained wit) Radiology Impression Discussion of test interpretation with radiology: I have reviewed the radiologist's reading. Critical Care Time Critical Care Time Critical Care Time: No Discharge Plan Discharge Clinical Impression: Abdominal pain, Nausea & vomiting, Viral illness Patient Disposition: Home, Self-Care Instructions: Acute Nausea and Vomiting (ED), Viral Syndrome (ED), Abdominal Pain (ED) Additional Instructions: Take your medications as prescribed. If you were prescribed antibiotics today, it is important that you take your medication to their entirety, do not skip any doses, do not finish them early. Follow-up with your primary care provider this week. Return to the emergency department with new or worsening symptoms. Such as fevers, chills, chest pain, shortness of breath, nausea, vomiting, dizziness, headache, vision changes, lethargy In case of emergency call 911 Please follow-up with your OBGYN you are noted to have ovarian cyst. They can follow these Zofran has been sent to your pharmacy please take this as prescribed. Do not take more than the prescribed doses this can lead to cardiac dysrhythmias ( abnormal rhythm) US/US pelvic and transvaginal IMPRESSION: Small simple cyst right ovary. Unremarkable left ovary and uterus. Small amount of free fluid in the cul-de-sac. CT/CT abdomen pelvis wo IV con IMPRESSION: 1. No renal calculi or hydronephrosis of either kidney. 2. 3.0 cm hypodense structure abutting the posterior lower uterine segment/cervix. This is a nonspecific finding but may represent a a cystic adnexal structure. Further evaluation can be obtained with pelvic ultrasound as clinically indicated. 3. There are a few mildly prominent but nonpathologically enlarged lymph nodes within the right lower abdomen, nonspecific. Fleischner guidelines were followed. Prescriptions: New ondansetron 4 mg tablet,disintegrating 4 mg PO Q6H PRN (Reason: nausea and vomiting) Qty: 14 0RF No Action lidocaine [Lidoderm] 5 % adhesive patch,medicated 1 patch topical DAILY Qty: 15 0RF Rx Instructions: leave on most painful area for up to 12 hrs ibuprofen 600 mg tablet 600 mg PO Q8H PRN (Reason: pain) Qty: 14 0RF cyclobenzaprine 5 mg tablet 5 mg PO TID PRN (Reason: muscle spasm) Qty: 14 0RF naproxen 500 mg tablet 500 mg PO BID PRN (Reason: pain) Qty: 20 0RF naproxen 500 mg tablet 500 mg PO BID PRN (Reason: pain) Qty: 20 0RF lidocaine [Lidoderm] 5 % adhesive patch,medicated 1 patch topical DAILY MDD remove after 12 hours PRN (Reason: pain) Qty: 30 0RF Rx Instructions: leave on most painful area for up to 12 hrs naproxen 500 mg tablet 500 mg PO BID PRN (Reason: pain) 10 Days Qty: 20 0RF cyclobenzaprine 5 mg tablet 5 mg PO Q8H PRN (Reason: pain (scale score 7-10)) 5 Days Qty: 14 0RF Referrals: Marisa Merino MD [Primary Care Provider] - 2 days Stand Alone Forms: Work/School Release
[2023-11-14 07:36] VITALS: BP 120/82; PULSE 87; RESP 16; TEMP 36.8; O2SAT 97
[2023-11-14 08:08] LABS: IDNOW Serial# 08D9AD1C; Strep A Nucleic Acid Negative (Negative)
[2023-11-14 08:35] LABS: Amphetamine Screen Urine Not Detected (Not Detect); Barbiturates, Urine Not Detected (Not Detect); Benzodiazepines Screen Urine Not Detected (Not Detect); Cannabinoid Screen Urine Not Detected (Not Detect); Cocaine Screen Urine Not Detected (Not Detect); Fentanyl, urine Not Detected (Not Detect); Opiate Screen Urine Not Detected (Not Detect); Phencyclidine Screen Urine Not Detected (Not Detect)
[2023-11-14] MEDS: Morphine Sulfate 2 MG/ML CARTRIDGE IVPUSH (09:57)
--- NOTE | 2023-11-14 10:28 | PC.NURSE ---
all ordered treatments completed. pt medicated as documented. resting quietly. will continue to observe.
[2023-11-14 10:39] LABS: Monotest Negative (Negative)
[2023-11-14] MEDS: ondansetron HCL 4 MG/2 ML VIAL IVPUSH (10:56)
== END 2023-11-14 13:55 | disposition home or self-care (01) ==
PROVIDERS: Physician Assistant; Emergency Provider Emergency Medicine; PCP Internal Medicine
DX: R10.9 Unspecified abdominal pain (principal); R11.0 Nausea; R53.83 Other fatigue; J02.9 Acute pharyngitis, unspecified; B34.9 Viral infection, unspecified; Z87.442 Personal history of urinary calculi; Z20.822 Contact with and (suspected) exposure to COVID-19; Z20.828 Contact with and (suspected) exposure to other viral communicable diseases
CPT/HCPCS: 0241U; 36415; 70450; 74176; 76830; 76856; 80053; 80307; 81001; 81025; 84702; 85025; 86308; 87086; 87651; 93975; 96374; 96375; 99284; J2270; J2405

== ENCOUNTER 2024-02-20 16:10 | Emergency (ER) | payer MEDICAID, SELFPAY ==
[2024-02-20 16:13] VITALS: BP 143/93; PULSE 93; RESP 18; TEMP 36.3; O2SAT 100; BMI 31.6
[2024-02-20 16:47] LABS: IDNOW Serial# 08D9AD1C; Strep A Nucleic Acid Positive (Negative)
--- NOTE | 2024-02-20 16:59 | ED.GENADULT ---
HPI - General Adult General Chief complaint: Upper Respiratory Symptoms Stated complaint: sore throat/headache Time Seen by Provider: 02/20/24 16:59 Source: patient Mode of arrival: ambulatory Limitations: no limitations History of Present Illness HPI narrative: 28-year-old female with no significant pmhx presents to the ED today for evaluation of sore throat and cough x3 days. Reports associated odynophagia. No dysphagia. States she is able to tolerate p.o. intake at home. No sputum production. She has not been taking any OTC pain medications at home. Denies fever, chills, chest pain, shortness of breath, dyspnea, rashes, nausea or vomiting. No sick contacts. No recent travel. Related Data Previous Rx's Medication Instructions Recorded naproxen 500 mg tablet 500 mg PO BID PRN pain #20 tabs 11/20/20 naproxen 500 mg tablet 500 mg PO BID PRN pain #20 tabs 11/20/20 cyclobenzaprine 5 mg tablet 5 mg PO TID PRN muscle spasm #14 07/27/21 tabs ibuprofen 600 mg tablet 600 mg PO Q8H PRN pain #14 tabs 07/27/21 lidocaine 5 % topical patch 1 patch topical DAILY #15 ea 07/27/21 (Lidoderm) cyclobenzaprine 5 mg tablet 5 mg PO Q8H PRN pain (scale score 08/05/21 7-10) 5 days #14 tabs lidocaine 5 % topical patch 1 patch topical DAILY PRN pain #30 08/05/21 (Lidoderm) ea naproxen 500 mg tablet 500 mg PO BID PRN pain 10 days #20 08/05/21 tabs ondansetron 4 mg disintegrating 4 mg PO Q6H PRN nausea and 11/14/23 tablet vomiting #14 tabs benzocaine 15 mg-menthol 2.6 mg 1 festus mucous membrane Q2-4H PRN 02/20/24 lozenges (Cepacol Sore Throat sore throat #16 ea (benzocaine-menthol)) penicillin V potassium 500 mg 500 mg PO BID 10 days #20 tabs 02/20/24 tablet Allergies Allergy/AdvReac Type Severity Reaction Status Date / Time oxycodone [From PERCOCET] Allergy Unknown RASH Verified 02/20/24 16:13 Review of Systems Review of Systems: Constitutional: No fever, chills, fatigue, night sweats, weight changes ENT/Mouth: No ear pain, hearing loss, nasal congestion, sinus pain, rhinorrhea, +sore throat, +odynophagia, No dysphagia Eyes: No eye pain, swelling, redness, vision changes, discharge Cardio: No chest pain, palpitations, PATEL, orthopnea, peripheral edema Pulm: No SOB, cough, sputum, wheezing, dyspnea, hemoptysis GI: No nausea, vomiting, hematemesis, abdominal pain, diarrhea, constipation, hematochezia, melena : No irregular bleeding, dysuria, frequency, urgency, hesitancy, hematuria, flank pain MSK: No back pain, neck pain, joint pain, myalgias Skin: No lesions, rashes Neuro: No weakness, numbness, paresthesias, LOC, dizziness, headache All other systems reviewed and are negative. [facility] Past Medical History Attestation statement: The following information was validated with the patient. Source: old records reviewed and nursing notes reviewed Surgical History History of cholecystectomy Social History Social History Advance Directives: No Advance Directives Information Provided: No Physical Exam ED Vital Signs: Vital Signs - 24 hr 02/20/24 16:13 02/20/24 17:18 Temperature 97.3 F 97.3 F Pulse Rate 93 93 Respiratory Rate 18 18 Blood Pressure 143/93 H 143/93 H Pulse Oximetry 100 100 Oxygen Delivery Method Room Air Room Air BMI result Body Mass Index 31.6 Vital signs stable, afebrile Const General: cooperative, healthy appearing, comfortable, no acute distress, alert and awake Orientation/consciousness: patient oriented x3 Limitations: no limitations HENMT Other: + posterior oropharynx erythematous, bilateral tonsillar hypertrophy, no tonsillar exudates or peritonsillar masses, uvula midline, controlling secretions and speaking complete sentences + no stridor. No muffled voice. Airway patent. Head: Yes normal to inspection, Yes normocephalic and Yes atraumatic Ears: hearing grossly normal bilaterally, external ears normal, TM's normal bilaterally, EAC's normal, mastoids normal and no periauricular adenopathy General nose exam: Normal external nose present and No nasal discharge present Face and sinus: Yes normal facial exam and Yes sinuses nontender Eyes General: appearance normal, both eyes and all related structures Pupils: Equal, round and reactive pupils present Neck Other: + no cervical, submandibular or submental LAD. Neck: Yes normal visual inspection and Yes full ROM Resp Effort & Inspection: normal respiratory effort and able to speak in complete sentences Auscultation: clear to auscultation bilaterally Cardio Rate: regular rate Rhythm: regular rhythm GI Inspection: Yes normal to inspection Palpation (GI): Soft to palpation and nontender Skin General skin exam: no rashes or lesions noted Neuro General: patient oriented x3, gait normal and moves all extremities Cranial nerves: Yes Equal, round and reactive pupils present Extrem General: Yes normal to inspection Course Course Course Narrative: 1710-- patient tested positive for strep throat consistent with exam findings. She tested negative for COVID, flu, RSV. Discussed all results with patient. Penicillin and Cepacol throat lozenges sent to pharmacy after discussion with patient. She verbalizes understanding. Patient has remained stable throughout ED visit today. Discussed worrisome signs and symptoms and when to return to the ED. All questions answered at this time. Patient is agreeable with disposition and stable for discharge. Medical Decision Making Medical Decision Making [facility] Narrative: 28-year-old female with no significant pmhx presents to the ED today for evaluation of sore throat and cough x3 days. Vital signs stable, afebrile. She is nontoxic-appearing and in no acute distress. On exam, posterior oropharynx erythematous with tonsillar hypertrophy. Uvula is midline. No tonsillar exudates. No peritonsillar masses. Controlling secretions and speaking in complete sentences. Airways patent. No stridor. No muffled voice. There is anterior cervical LAD. No submental or submandibular LAD. Lungs are CTA bilaterally. No rashes. Bilateral EACs and TMs WNL. No anterior neck swelling. Differential diagnosis includes strep throat, viral syndrome. Unlikely mono, [employer], retropharyngeal abscess, dental abscess, epiglottitis, Gerald's angina. Viral and strep swab ordered. Plan for review and re-evaluation. Differential Diagnosis Differential Diagnoses: The differential diagnosis associated with the presentation includes as above. Admission/Observation Not indicated Lab Data [facility] Lab Attestation statement: I reviewed the patient's lab results. as above Labs: Lab Results 02/20/24 Range/Units 16:36 Influenza Type A (PCR) NEGATIVE (Negative) Influenza Type B (PCR) NEGATIVE (Negative) RSV RNA Qual (PCR) NEGATIVE (Negative) SARS-CoV-2 RNA (RT-PCR) NEGATIVE (Negative) S. pyogenes GrpA MARIZA Positive A (Negative) External Record Review External record reviewed: Inpatient record Prescription Management I considered prescription management with: Pain Medication, Antibiotic (Penicillin) and Other (Cepacol throat lozenges) Social Determinants Patient?s care significantly limited by Social Determinants of Health including: Other Social Determinant of Health Critical Care Time Critical Care Time Critical Care Time: No Discharge Plan Discharge Clinical Impression: Acute streptococcal pharyngitis Patient Disposition: Home, Self-Care Instructions: Pharyngitis (ED), Strep Throat (ED) Additional Instructions: You were seen in the ED today for evaluation of sore throat. You tested negative for covid, flu and rsv. You tested positive for strep throat. Penicillin is an antibiotic that has been sent to your pharmacy. Take this twice daily for the next 10 days to treat strep throat. Do not stop taking these antibiotics early or miss any doses as this may cause infection to return or worsen. Cepacol throat lozenges have been sent to your pharmacy to help with throat pain. You may also purchase [id number] chloraseptic spray to numb your throat. Take Tylenol and ibuprofen as needed for body aches or fevers. Make sure to change your toothbrush as this contains bacteria. Strep throat is contagious. If anyone else in your household is exhibiting symptoms, please advise them to come to the ED, urgent care, or to see their primary care provider. Follow up with your primary care provider as needed. Return to the emergency department if your symptoms persist or worsen despite treatment or if you have difficulty swallowing, opening your mouth, or develop a rash. In the case of emergency, call 911.? Prescriptions: New penicillin V potassium 500 mg tablet 500 mg PO BID 10 Days Qty: 20 0RF Cepacol Sore Throat (leigh-men) 15-2.6 mg lozenge 1 festus mucous membrane Q2-4H PRN (Reason: sore throat) Qty: 16 0RF No Action lidocaine [Lidoderm] 5 % adhesive patch,medicated 1 patch topical DAILY Qty: 15 0RF Rx Instructions: leave on most painful area for up to 12 hrs ibuprofen 600 mg tablet 600 mg PO Q8H PRN (Reason: pain) Qty: 14 0RF cyclobenzaprine 5 mg tablet 5 mg PO TID PRN (Reason: muscle spasm) Qty: 14 0RF naproxen 500 mg tablet 500 mg PO BID PRN (Reason: pain) Qty: 20 0RF naproxen 500 mg tablet 500 mg PO BID PRN (Reason: pain) Qty: 20 0RF lidocaine [Lidoderm] 5 % adhesive patch,medicated 1 patch topical DAILY MDD remove after 12 hours PRN (Reason: pain) Qty: 30 0RF Rx Instructions: leave on most painful area for up to 12 hrs naproxen 500 mg tablet 500 mg PO BID PRN (Reason: pain) 10 Days Qty: 20 0RF cyclobenzaprine 5 mg tablet 5 mg PO Q8H PRN (Reason: pain (scale score 7-10)) 5 Days Qty: 14 0RF ondansetron 4 mg tablet,disintegrating 4 mg PO Q6H PRN (Reason: nausea and vomiting) Qty: 14 0RF Referrals: Marisa Merino MD [Primary Care Provider] - Stand Alone Forms: Work/School Release Interventions: ED Discharge Assessment Last Done: 02/20/24 17:18 Discharge Date/Time: 02/20/24 17:19
[2024-02-20 17:18] VITALS: BP 143/93; PULSE 93; RESP 18; TEMP 36.3; O2SAT 100
[2024-02-20 17:18] LABS: Influenza A PCR NEGATIVE (Negative); Influenza B PCR NEGATIVE (Negative); Resp Syncy Virus RNA Qual PCR NEGATIVE (Negative); SARS COV2 PCR INHOUSE NEGATIVE (Negative)
== END 2024-02-20 17:19 | disposition home or self-care (01) ==
PROVIDERS: Emergency Provider Emergency Medicine; PCP Internal Medicine
DX: J02.0 Streptococcal pharyngitis (principal); Z11.52 Encounter for screening for COVID-19; Z20.828 Contact with and (suspected) exposure to other viral communicable diseases
CPT/HCPCS: 0241U; 87651; 99282; 99283

== ENCOUNTER 2024-05-31 12:38 | Emergency (ER) | payer MEDICAID, SELFPAY ==
[2024-05-31 12:56] VITALS: BP 130/85; PULSE 69; RESP 18; TEMP 36.2; O2SAT 99; BMI 33.6
--- NOTE | 2024-05-31 12:59 | ED_ITS ---
HPI - Eye Problem General Chief complaint: Eye Problems Stated complaint: red eye Time Seen by Provider: 05/31/24 12:55 Source: patient Mode of arrival: ambulatory Limitations: no limitations History of Present Illness ED Provider: RD [place] HPI Narrative: 28 year old female presents w/ right eye redness concerned because her daughter told her she had blood in her eye. No a/c truama or pain. No visual changes or headache. No dizziness, uri, dizziness, cp, sob, nausea, vomiting, abd pain. Not on thinners. Related Data Previous Rx's ?Medication ?Instructions ?Recorded naproxen 500 mg tablet 500 mg PO BID PRN pain #20 tabs 11/20/20 naproxen 500 mg tablet 500 mg PO BID PRN pain #20 tabs 11/20/20 cyclobenzaprine 5 mg tablet 5 mg PO TID PRN muscle spasm #14 07/27/21 tabs ibuprofen 600 mg tablet 600 mg PO Q8H PRN pain #14 tabs 07/27/21 lidocaine 5 % topical patch 1 patch topical DAILY #15 ea 07/27/21 (Lidoderm) cyclobenzaprine 5 mg tablet 5 mg PO Q8H PRN pain (scale score 08/05/21 7-10) 5 days #14 tabs lidocaine 5 % topical patch 1 patch topical DAILY PRN pain #30 08/05/21 (Lidoderm) ea naproxen 500 mg tablet 500 mg PO BID PRN pain 10 days #20 08/05/21 tabs ondansetron 4 mg disintegrating 4 mg PO Q6H PRN nausea and 11/14/23 tablet vomiting #14 tabs benzocaine 15 mg-menthol 2.6 mg 1 festus mucous membrane Q2-4H PRN 02/20/24 lozenges (Cepacol Sore Throat sore throat #16 ea (benzocaine-menthol)) penicillin V potassium 500 mg 500 mg PO BID 10 days #20 tabs 02/20/24 tablet Allergies Allergy/AdvReac Type Severity Reaction Status Date / Time oxycodone [From PERCOCET] Allergy Unknown RASH Verified 05/31/24 12:57 Review of Systems Review of Systems: Yes all other systems are reviewed and are negative PMFSH Past Medical History Attestation statement: The following information was validated with the patient. Source: old records reviewed and nursing notes reviewed Surgical History History of cholecystectomy Social History Social History Advance Directives: No Do you have a plan to hurt others: No Plan Physical Exam Vital Signs: Vital Signs: Last Vital Signs Temp 97.1 F 05/31/24 12:56 Pulse 69 05/31/24 12:56 Resp 18 05/31/24 12:56 BP 130/85 05/31/24 12:56 Pulse Ox 99 05/31/24 12:56 O2 Del Method Room Air 05/31/24 12:56 BMI result Body Mass Index 33.6 vss Appearance: Alert.? Oriented X3.? No acute distress.? Head: Normocephalic, atraumatic, no step-offs or deformities Eyes: Pupils equal, round and reactive to light.? EOMI pain free. sub conjuncti vval hemmorage to the 11ocklock positiono f right eye. Fluoro stain: no uptake negative sidels sign Neck: Normal inspection.? Neck supple.? CVS: Normal heart rate and rhythm.? Pulses normal.? Respiratory: No respiratory distress.? Breath sounds normal.? Abdomen: Soft and nontender.? Skin: Skin warm and dry.? Normal skin color.? Normal skin turgor.? Extremities: No lower extremity edema.? No calf ttp. 5/5 strength to bilateral upper and lower extremities Back: No midline tenderness, no C-spine tenderness, full range of motion, no CVA tenderness bilaterally Neuro: Oriented X 3.? No motor deficit.? No sensory deficit. CN 2-12 intact Course Reevaluation(s) Reevaluation #1: Normal eye test and fluoro stain. Plan dc w/ optho follow up Time: 13:03 Medical Decision Making Medical Decision Making MDM Narrative: 28 yo f presents w/ concerns her eye has blood in it Eyes: Pupils equal, round and reactive to light.? EOMI pain free. Hyphema to the 11ocklock positiono f right eye. Fluoro stain: no uptake negative sidels sign Hx and pe concerning for sub conjunctivval hemmorage vs hyphema. No signs of trauma, abrasion, ulcer, ich, stroke, acute closed angle gluacoma or wet macular degeneraion Plan- fluoro stain dc w/ optho follow up Differential Diagnosis Differential Diagnoses: The differential diagnosis associated with the presentation includes Hx and pe concerning for sub conjunctivval hemmorage vs hyphema hyphema. No signs of trauma, abrasion, ulcer, ich, stroke, acute closed angle gluacoma or wet macular degeneraion Admission/Observation Consideration of admission/observation: Escalation of care including admission/observation considered No indication Tests considered The following testing was considered but not selected: tonometry- but no pain not needed Chronic Conditions Patient?s care impacted by: Other (obesity ) Discharge Plan Discharge Clinical Impression: Subconjunctival hemorrhage Patient Disposition: Home, Self-Care Instructions: Subconjunctival Hemorrhage (ED) Additional Instructions: Take your medications as prescribed. If you were prescribed antibiotics today, it is important that you take your medication to their entirety, do not skip any doses, do not finish them early. Follow-up with your primary care provider this week. Return to the emergency department with new or worsening symptoms. In case of emergency call 911 Prescriptions: No Action lidocaine [Lidoderm] 5 % adhesive patch,medicated 1 patch topical DAILY Qty: 15 0RF Rx Instructions: leave on most painful area for up to 12 hrs ibuprofen 600 mg tablet 600 mg PO Q8H PRN (Reason: pain) Qty: 14 0RF cyclobenzaprine 5 mg tablet 5 mg PO TID PRN (Reason: muscle spasm) Qty: 14 0RF naproxen 500 mg tablet 500 mg PO BID PRN (Reason: pain) Qty: 20 0RF naproxen 500 mg tablet 500 mg PO BID PRN (Reason: pain) Qty: 20 0RF lidocaine [Lidoderm] 5 % adhesive patch,medicated 1 patch topical DAILY MDD remove after 12 hours PRN (Reason: pain) Qty: 30 0RF Rx Instructions: leave on most painful area for up to 12 hrs naproxen 500 mg tablet 500 mg PO BID PRN (Reason: pain) 10 Days Qty: 20 0RF cyclobenzaprine 5 mg tablet 5 mg PO Q8H PRN (Reason: pain (scale score 7-10)) 5 Days Qty: 14 0RF ondansetron 4 mg tablet,disintegrating 4 mg PO Q6H PRN (Reason: nausea and vomiting) Qty: 14 0RF penicillin V potassium 500 mg tablet 500 mg PO BID 10 Days Qty: 20 0RF Cepacol Sore Throat (leigh-men) 15-2.6 mg lozenge 1 festus mucous membrane Q2-4H PRN (Reason: sore throat) Qty: 16 0RF Referrals: Marisa Merino MD [Primary Care Provider] - 2 days Josiah Jamil [Physician] - 1 day Stand Alone Forms: Work/School Release Print Language: Norwegian
[2024-05-31 13:12] VITALS: BP 130/85; PULSE 69; RESP 18; TEMP 36.2; O2SAT 99
[2024-05-31] MEDS: Fluorescein Sodium STRIP 1 STRIP EYE-BOTH (13:25)
== END 2024-05-31 13:25 | disposition home or self-care (01) ==
PROVIDERS: Emergency Provider Emergency Medicine; PCP Internal Medicine
DX: H11.31 Conjunctival hemorrhage, right eye (principal)
CPT/HCPCS: 99282; 99283

== ENCOUNTER 2024-06-22 11:37 | Outpatient (REF) | payer MEDICAID, SELFPAY ==
[2024-06-22 13:13] LABS: MANUAL DIFF FLAG NO
[2024-06-22 13:27] LABS: Basophils Absolute Auto 0.1 X10*3/uL (0.0-0.2); Basophils Percent Auto 0.7 % (0-2); Eosinophils Absolute Auto 0.1 X10*3/uL (0.0-0.4); Eosinophils Percent Auto 1.3 % (0-4); Hematocrit 38.9 % (37.0-47.0); Hemoglobin 13.1 g/dl (12.0-16.0); Imm Gran Abs Auto 0.04 X10*3/uL (0.00-0.03); Imm Gran Pct Auto 0.5 % (0.0-0.4); Lymphocytes Absolute Auto 3.2 X10*3/uL (1.2-4.9); Lymphocytes Percent Auto 39.2 % (20-40); Mean Corpuscular HGB Conc 33.7 g/dl (31.0-35.0); Mean Corpuscular Hemoglobin 29.9 pg (27.0-33.0); Mean Corpuscular Volume 88.8 fL (80.0-98.0); Mean Platelet Volume 11.3 fL (9.4-12.3); Monocytes Absolute Auto 0.7 X10*3/uL (0.1-1.2); Monocytes Percent Auto 8.1 % (2-11); Neutrophils Absolute Auto 4.1 x10*3/uL (2.0-8.3); Neutrophils Percent Auto 50.2 % (45-73); Platelet Count 272 X10*3/uL (160-400); Red Blood Count 4.38 X10*6/uL (4.20-5.50); Red Cell Distribution Width 12.6 % (11.0-16.0); White Blood Count 8.2 X10*3/uL (4.8-10.8)
[2024-06-22 13:44] LABS: Alanine Aminotransferase 15 U/L (0-31); Albumin Level 4.2 g/dL (3.5-5.0); Alkaline Phosphatase 56 U/L (39-117); Anion Gap 11 (12-20); Aspartate Amino Transferase 19 U/L (5-31); Bilirubin Total 1.1 mg/dL (0.0-1.0); Blood Urea Nitrogen 9 mg/dL (9-16); Carbon Dioxide 25 mmol/L (22-29); Chloride 104 mmol/L (96-108); Estimated Glomerular Filt Rate > 60; Glucose Random 97 mg/dL (60-115); Potassium 3.3 mmol/L (3.3-5.1); Sodium 137 mmol/L (135-145); Total Protein 7.4 g/dL (6.5-8.0)
[2024-06-22 13:46] LABS: Ferritin 92 ng/mL (10-122); TSH reflex Free T4 1.14 uIU/mL (0.32-4.0)
[2024-06-22 16:24] LABS: CT PCR NOT DETECTED (Not Detect.); NG PCR NOT DETECTED (Not Detect.)
== END 2024-06-22 11:38 | disposition home or self-care (01) ==
LOC: HO.10HDL 11:37
PROVIDERS: Visit Provider Internal Medicine
DX: Z00.00 Encounter for general adult medical examination without abnormal findings (principal); E04.0 Nontoxic diffuse goiter; H11.31 Conjunctival hemorrhage, right eye; L29.9 Pruritus, unspecified; Z12.4 Encounter for screening for malignant neoplasm of cervix
CPT/HCPCS: 80053; 82728; 84443; 85025; 87491; 87591

== ENCOUNTER 2025-02-06 23:28 | Emergency (ER) | payer MEDICAID, SELFPAY ==
[2025-02-06 23:56] VITALS: BP 150/95; PULSE 96; RESP 20; TEMP 37.1; O2SAT 100; BMI 31.5
--- NOTE | 2025-02-07 | ECG_ITS ---
Test Reason : CP Blood Pressure : */* mmHG Vent. Rate : 97 BPM Atrial Rate : 97 BPM P-R Int : 150 ms QRS Dur : 74 ms QT Int : 348 ms P-R-T Axes : 50 27 28 degrees QTcB Int : 441 ms Normal sinus rhythm with sinus arrhythmia Normal ECG No previous ECGs available Referred By: Generic ED Physician Electronically Signed By: PADDY JOSHI
[2025-02-07 00:28] LABS: MANUAL DIFF FLAG NO
[2025-02-07 00:29] LABS: Basophils Absolute Auto 0.1 X10*3/uL (0.0-0.2); Basophils Percent Auto 0.4 % (0-2); Eosinophils Absolute Auto 0.2 X10*3/uL (0.0-0.4); Hematocrit 37.1 % (37.0-47.0); Hemoglobin 12.7 g/dl (12.0-16.0); Imm Gran Abs Auto 0.05 X10*3/uL (0.00-0.03); Imm Gran Pct Auto 0.3 % (0.0-0.4); Lymphocytes Absolute Auto 4.3 X10*3/uL (1.2-4.9); Lymphocytes Percent Auto 29.1 % (20-40); Mean Corpuscular HGB Conc 34.2 g/dl (31.0-35.0); Mean Corpuscular Hemoglobin 29.8 pg (27.0-33.0); Mean Corpuscular Volume 87.1 fL (80.0-98.0); Mean Platelet Volume 11.3 fL (9.4-12.3); Monocytes Absolute Auto 1.1 X10*3/uL (0.1-1.2); Monocytes Percent Auto 7.3 % (2-11); Neutrophils Absolute Auto 9.2 x10*3/uL (2.0-8.3); Neutrophils Percent Auto 61.9 % (45-73); Platelet Count 242 X10*3/uL (160-400); Red Blood Count 4.26 X10*6/uL (4.20-5.50); Red Cell Distribution Width 12.7 % (11.0-16.0); White Blood Count 14.9 X10*3/uL (4.8-10.8)
[2025-02-07 00:30] LABS: Appearance Urine Clear; Color Urine Yellow; Glucose Urine UA Negative (Negative); Leukocyte Esterase Urine Negative (Negative); Nitrite Urine Negative (Negative); Urine Blood Negative (Negative); Urine Ketones Trace mg/dL (Negative); Urine Protein Negative (Neg-Trace)
[2025-02-07 00:33] LABS: UPreg QC Valid YES; Urine Pregnancy NEGATIVE (NEGATIVE)
[2025-02-07 00:35] LABS: Bacteria Urine None Seen (None Seen); Hyaline Casts Urine 0-2 /LPF (0-2); RBC Urine 0-2 /HPF (0-2); WBC Urine 0-5 /HPF (0-5)
[2025-02-07 00:52] LABS: IDNOW Serial# 6674DD1D; Strep A Nucleic Acid Positive (Negative)
[2025-02-07 00:52] LABS: Alanine Aminotransferase 18 U/L (0-31); Albumin Level 4.1 g/dL (3.5-5.0); Alkaline Phosphatase 60 U/L (39-117); Anion Gap 11 (12-20); Aspartate Amino Transferase 21 U/L (5-31); Bilirubin Total 0.7 mg/dL (0.0-1.0); Blood Urea Nitrogen 13 mg/dL (9-16); Calcium 8.9 mg/dL (8.4-10.2); Carbon Dioxide 23 mmol/L (22-29); Chloride 107 mmol/L (96-108); Creatinine Clr Calc Pharmacy 89.8; Estimated Glomerular Filt Rate > 60; Glucose Random 91 mg/dL (60-115); Potassium 3.3 mmol/L (3.3-5.1); Sodium 138 mmol/L (135-145); Total Protein 7.8 g/dL (6.5-8.0)
[2025-02-07 01:06] LABS: Influenza A PCR NEGATIVE (Negative); Influenza B PCR NEGATIVE (Negative); Resp Syncy Virus RNA Qual PCR NEGATIVE (Negative); SARS COV2 PCR INHOUSE NEGATIVE (Negative)
--- OUTSIDE RECORDS SUMMARY | 2025-02-07 01:28 | XMS_ITS | Clinical Summary ---
Author Organization [facility] it[facility] Address [address] [place] [address] Care Team Providers Care Cane Packer Name Role Phone Marisa Merino MD Primary Care Provider Social History Tobacco Use Types Packs/Day Years Used Date Smoking Tobacco: Never Assessed Comments Unknown Sex and Gender Information Value Date Recorded Sex Assigned at Not on file Legal Sex Female 11:35 PM EST Gender Identity Not on file Sexual Orientation Not on file Plan of Treatment Health Maintenance Due Date Last Done Comments DTaP,Tdap,and Td Vaccines (1 - Tdap) 2013 Hepatitis B Vaccines (1 of 3 - 19+ 3-dose series) 2013 Cervical Cancer Screening: P ap Smear 2015 COVID-19 Vaccine ( - 2023-2 5 season) 2024 Influenza Vaccine (#1) 2024 Depression Screening 09/05/2024 HIV Screening 09/05/2024 Hepatitis C Screening 09/05/2024 Social Influencers of Health Screening 09/05/2024 HIB Vaccines Aged Out No longer eligi ble based on patient's age to complete this topic HPV Vaccines Aged Out No longer eligi ble based on patient's age to complete this topic Hepatitis A Vaccines Aged Out No long er eligible based on patient's age to complete this topic IPV Vaccines Aged Out No longer eligi ble based on patient's age to complete this topic MMR Vaccines Aged Out No longer eligi ble based on patient's age to complete this topic Meningococcal ACWY Vaccine Aged Out N o longer eligible based on patient's age to complete this topic Meningococcal B Vacine Aged Out No lo nger eligible based on patient's age to complete this topic Pneumococcal Vaccine: Pediat rics (0 to 5 Years) and At-Risk Patients (6 to 64 Years) Aged Out No longer eligible b ased on patient's age to complete this topic RSV Immunization Patients Un aaron 20 months Aged Out No longer eligible b ased on patient's age to complete this topic Varicella Vaccines Aged Out No longer eligible based on patient's age to complete this topic Care Teams Cane Packer Relationship Specialty Start Date End Date Marisa Merino MD [address] [place] [address] Dr [place], [place] [id number] PCP - General 06/26/24
[2025-02-07] MEDS: Penicillin V Potassium 250 MG TABLET 500 MG PO (02:18)
--- NOTE | 2025-02-07 02:19 | PC.NURSE ---
Pt medicated per [facility] Plan of care ongoing.
[2025-02-07 03:30] VITALS: BP 126/89; PULSE 75; RESP 18; TEMP 37.2; O2SAT 98
--- NOTE | 2025-02-07 03:30 | ED.GENADULT ---
HPI - General Adult General Chief complaint: Abdominal Pain Stated complaint: kidney pain Time Seen by Provider: 02/07/25 01:52 Source: patient Limitations: no limitations History of Present Illness ED Provider: Joy Watson PA-C HPI narrative: 29-year-old female presents with multiple complaints. Patient states she has been having bilateral flank pain x 3 days. The pain radiates around to the right lower abdomen. Associated dysuria, chills, headache, nausea, sore throat. Denies fever. Denies hematuria or history of kidney stones. Related Data Previous Rx's ?Medication ?Instructions ?Recorded naproxen 500 mg tablet 500 mg PO BID PRN pain #20 tabs 11/20/20 naproxen 500 mg tablet 500 mg PO BID PRN pain #20 tabs 11/20/20 cyclobenzaprine 5 mg tablet 5 mg PO TID PRN muscle spasm #14 07/27/21 tabs ibuprofen 600 mg tablet 600 mg PO Q8H PRN pain #14 tabs 07/27/21 lidocaine 5 % topical patch 1 patch topical DAILY #15 ea 07/27/21 (Lidoderm) cyclobenzaprine 5 mg tablet 5 mg PO Q8H PRN pain (scale score 08/05/21 7-10) 5 days #14 tabs lidocaine 5 % topical patch 1 patch topical DAILY PRN pain #30 08/05/21 (Lidoderm) ea naproxen 500 mg tablet 500 mg PO BID PRN pain 10 days #20 08/05/21 tabs ondansetron 4 mg disintegrating 4 mg PO Q6H PRN nausea and 11/14/23 tablet vomiting #14 tabs benzocaine 15 mg-menthol 2.6 mg 1 festus mucous membrane Q2-4H PRN 02/20/24 lozenges (Cepacol Sore Throat sore throat #16 ea (benzocaine-menthol)) penicillin V potassium 500 mg 500 mg PO BID 10 days #20 tabs 02/20/24 tablet penicillin V potassium 500 mg 500 mg PO BID #19 tabs 02/07/25 tablet Allergies Allergy/AdvReac Type Severity Reaction Status Date / Time oxycodone [From PERCOCET] Allergy Unknown RASH Verified 02/06/25 23:57 Review of Systems Review of Systems: Yes all other systems are reviewed and are negative Constitutional: Constitutional: Reports chills, Reports fatigue, Denies fever(s), Reports headache(s) and Reports malaise ENT: Reports headache(s) and Reports sore throat Cardiovascular: Cardiovascular: Denies chest pain and Denies dyspnea Respiratory: Respiratory: Denies cough and Denies dyspnea Gastrointestinal: Gastrointestinal: Reports abdominal pain, Reports nausea and Denies vomiting Genitourinary: Genitourinary: Reports dysuria and Reports flank pain Neurologic: Reports headache(s) Endocrine: Endocrine: Reports fatigue PMFSH Past Medical History Attestation statement: The following information was validated with the patient. Surgical History History of cholecystectomy Social History Social History Smoked in Last 30 Days: No Use of substances other than those prescribed or required for medical reasons: No Advance Directives: No Physical Exam ED Vital Signs: Vital Signs - 24 hr 02/06/25 23:56 Temperature 98.7 F Pulse Rate 96 Respiratory Rate 20 Blood Pressure 150/95 H Pulse Oximetry 100 Oxygen Delivery Method Room Air BMI result Body Mass Index 31.5 Const Other: Alert well-appearing Orientation/consciousness: patient oriented x3 HENMT Other: Oropharynx is erythematous without exudate, uvula midline, no sublingual fluctuance, no swelling inferior to the jawline Resp Effort & Inspection: normal respiratory effort Cardio Other: Normal peripheral perfusion GI Other: Abdomen is soft nontender no guarding Back/Spine/Pelvis Other: No CVA tenderness Skin Other: Warm dry no rash Neuro General: patient oriented x3, gait normal, no focal motor deficits and CN's II-XI intact bilaterally Psych Other: Calm cooperative Medications Administered Discontinued Medications Generic Name Dose Route Start Last Admin Trade Name Freq PRN Reason Stop Dose Admin Dexamethasone 10 mg 02/07/25 03:19 02/07/25 03:34 Dexamethasone 2 Mg Tablet PO 02/07/25 03:20 10 mg ONCE ONE Administration Penicillin V Potassium 500 mg 02/07/25 02:00 02/07/25 02:18 Penicillin V Potassium 250 Mg Tablet PO 02/07/25 02:01 500 mg ONCE ONE Administration Medical Decision Making Medical Decision Making MDM Narrative: 29-year-old female presents with multiple complaints. Patient states she has been having bilateral flank pain x 3 days. The pain radiates around to the right lower abdomen. Associated dysuria, chills, headache, nausea, sore throat. Denies fever. Denies hematuria or history of kidney stones. No chronic issues History: Per patient I have considered the following differential diagnoses: Pharyngitis, strep pharyngitis, viral syndrome, RPA, CAREER DEVELOPMENT SPECIALIST, UTI, pyelonephritis, renal colic Plan: Patient was here with a wide range of symptoms. At the end of the day, I feel that she is having myalgias in conjunction with her sore throat. Screening labs including urinalysis, viral panel and strep screen were ordered from triage. She is positive for strep throat. She has no evidence of urinary tract infection. We will treat with penicillin. I have independently reviewed the following tests: Labs: Leukocytosis noted, not anemic, no electrolyte abnormality, not , urine not infected, viral panel negative, strep screen positive Lab Data 02/07/25 00:13 02/07/25 00:13 Labs: Lab Results 02/07/25 02/07/25 Range/Units 00:13 00:18 WBC 14.9 H (4.8-10.8) X10*3/uL RBC 4.26 (4.20-5.50) X10*6/uL Hgb 12.7 (12.0-16.0) g/dl Hct 37.1 (37.0-47.0) % MCV 87.1 (80.0-98.0) fL MCH 29.8 (27.0-33.0) pg MCHC 34.2 (31.0-35.0) g/dl RDW 12.7 (11.0-16.0) % Plt Count 242 (160-400) X10*3/uL MPV 11.3 (9.4-12.3) fL Immature Gran % (Auto) 0.3 (0.0-0.4) % Neut % (Auto) 61.9 (45-73) % Lymph % (Auto) 29.1 (20-40) % Brown % (Auto) 7.3 (2-11) % Eos % (Auto) 1.0 (0-4) % Baso % (Auto) 0.4 (0-2) % Lymph # (Auto) 4.3 (1.2-4.9) X10*3/uL Brown # (Auto) 1.1 (0.1-1.2) X10*3/uL Eos # (Auto) 0.2 (0.0-0.4) X10*3/uL Baso # (Auto) 0.1 (0.0-0.2) X10*3/uL Abs Immat Gran (auto) 0.05 H (0.00-0.03) X10*3/uL Absolute Neuts (auto) 9.2 H (2.0-8.3) x10*3/uL Absolute Nucleated RBC 0.000 (0.0-0.012) X10*3/uL Nucleated RBC % (auto) 0.0 (0.0-0.2) /100WBC Sodium 138 (135-145) mmol/L Potassium 3.3 (3.3-5.1) mmol/L Chloride 107 (96-108) mmol/L Carbon Dioxide 23 (22-29) mmol/L Anion Gap 11 L (12-20) BUN 13 (9-16) mg/dL Creatinine 0.75 (0.5-1.4) mg/dL Estim Creat Clear Calc 89.8 Estimated GFR > 60 Random Glucose 91 (60-115) mg/dL Calcium 8.9 (8.4-10.2) mg/dL Total Bilirubin 0.7 (0.0-1.0) mg/dL AST 21 (5-31) U/L ALT 18 (0-31) U/L Alkaline Phosphatase 60 (39-117) U/L Total Protein 7.8 (6.5-8.0) g/dL Albumin 4.1 (3.5-5.0) g/dL Urine Color Yellow Urine Appearance Clear Urine pH 7.0 (5.0-9.0) Ur Specific [place] 1.020 (1.005-1.025) Urine Protein Negative (Neg-Trace) mg/dL Urine Glucose (UA) Negative (Negative) mg/dL Urine Ketones Trace (Negative) mg/dL Urine Blood Negative (Negative) Urine Nitrite Negative (Negative) Ur Leukocyte Esterase Negative (Negative) Urine RBC 0-2 (0-2) /HPF Urine WBC 0-5 (0-5) /HPF Ur Squamous Epith Cells 3-5 (0-2) /HPF Urine Bacteria None Seen (None Seen) Hyaline Casts 0-2 (0-2) /LPF Urine Test NEGATIVE (NEGATIVE) Influenza Type A (PCR) NEGATIVE (Negative) Influenza Type B (PCR) NEGATIVE (Negative) RSV RNA Qual (PCR) NEGATIVE (Negative) SARS-CoV-2 RNA (RT-PCR) NEGATIVE (Negative) S. pyogenes GrpA MARIZA Positive A (Negative) Discharge Plan Discharge Clinical Impression: Strep throat Patient Disposition: Home, Self-Care Instructions: Strep Throat (ED) Additional Instructions: You tested positive for strep throat. The rest of your labs were normal. See home care instructions. Take the penicillin as directed. You received a 1 time dose of Decadron, this is a steroid, to help with the inflammation of your tonsils. Follow up with your primary care provider as needed. Prescriptions: New penicillin V potassium 500 mg tablet 500 mg PO BID Qty: 19 0RF No Action lidocaine [Lidoderm] 5 % adhesive patch,medicated 1 patch topical DAILY Qty: 15 0RF Rx Instructions: leave on most painful area for up to 12 hrs ibuprofen 600 mg tablet 600 mg PO Q8H PRN (Reason: pain) Qty: 14 0RF cyclobenzaprine 5 mg tablet 5 mg PO TID PRN (Reason: muscle spasm) Qty: 14 0RF naproxen 500 mg tablet 500 mg PO BID PRN (Reason: pain) Qty: 20 0RF naproxen 500 mg tablet 500 mg PO BID PRN (Reason: pain) Qty: 20 0RF lidocaine [Lidoderm] 5 % adhesive patch,medicated 1 patch topical DAILY MDD remove after 12 hours PRN (Reason: pain) Qty: 30 0RF Rx Instructions: leave on most painful area for up to 12 hrs naproxen 500 mg tablet 500 mg PO BID PRN (Reason: pain) 10 Days Qty: 20 0RF cyclobenzaprine 5 mg tablet 5 mg PO Q8H PRN (Reason: pain (scale score 7-10)) 5 Days Qty: 14 0RF ondansetron 4 mg tablet,disintegrating 4 mg PO Q6H PRN (Reason: nausea and vomiting) Qty: 14 0RF penicillin V potassium 500 mg tablet 500 mg PO BID 10 Days Qty: 20 0RF Cepacol Sore Throat (leigh-men) 15-2.6 mg lozenge 1 festus mucous membrane Q2-4H PRN (Reason: sore throat) Qty: 16 0RF Interventions: ED Discharge Assessment Last Done: 02/07/25 03:38 Discharge Date/Time: 02/07/25 03:41 Print Language: Romansh
[2025-02-07] MEDS: dexAMETHasone 2 MG TABLET 10 MG PO (03:34)
--- NOTE | 2025-02-07 03:36 | PC.NURSE ---
Pt medicated per [facility] plan of care ongoing.
[2025-02-07 03:38] VITALS: BP 126/89; PULSE 75; RESP 18; TEMP 37.2; O2SAT 98
== END 2025-02-07 03:41 | disposition home or self-care (01) ==
PROVIDERS: Emergency Provider Emergency Medicine; PCP Internal Medicine
DX: J02.0 Streptococcal pharyngitis (principal); R10.31 Right lower quadrant pain; R30.0 Dysuria; R07.89 Other chest pain; R51.9 Headache, unspecified; I49.8 Other specified cardiac arrhythmias; R11.0 Nausea; Z03.818 Encounter for observation for suspected exposure to other biological agents ruled out
CPT/HCPCS: 0241U; 80053; 81001; 81025; 85025; 87651; 93005; 99283; 99285; J8540

== ENCOUNTER → 2025-02-07 00:19 | Outpatient (BNV) | payer MEDICAID, SELFPAY | PROVIDERS: Emergency Provider Emergency Medicine; PCP Internal Medicine; Visit Provider Internal Medicine | DX: R07.9 Chest pain, unspecified (principal) | CPT/HCPCS: 93010 ==

== ENCOUNTER 2025-08-15 19:31 | Emergency (ER) | payer MEDICAID, SELFPAY ==
--- OUTSIDE RECORDS SUMMARY | 2022-05-06 06:49 | XMS_ITS | Continuity of Care Document ---
Author Organization [facility] [employer] Address [address] [place] [address] Phone Care Team Providers Care Clinic Charge Nurse Name Role Phone Mayes CHRISTEL Pasha Unavailable [...] Orientation HEd 15 Minutes Test (also Use 42040) 016 URINE TEST Advance Directives Directive Yes / No Effective Date File Name No Information Encounters Encounter Description Practice Location Reason(s) For Visit Diagnoses Date Provider Providers Copied on Encounter [facility] [employer] [facility], [address] [place] [address], [id number], [place] tel:[phone] [facility] [address] No Information 2 Gerber Mccormickto. [address] [place] [address], [id number], [place]. tel:[phone] [facility], [address] [place] [address], [id number], [place] tel:[phone] [facility] [place] COVID test (chief complaint) Exposure to 2019 novel coronavirus 0 Provider Nursing. [address] [place] [address], [id number], [place]. tel:[phone] OFFICE VISIT, EST LOW [facility], [address] [place] [address], [id number], [place] tel: [employer] [facility] COVID-19 Screening (chief complaint) Viral upper respiratory tract infectionExposur e to 2019 novel coronavirusEncou nter for screening for depression 0 Warren Oneill. [address] [place], [address], [place]. tel: OFFICE VISIT, EST LOW [facility], [address] [place] [address], [id number], [place] tel: [employer] [place] depo provera (chief complaint) Encounter for management and injection of depo-Provera 7 No Information OFFICE VISIT, EST LMTD [facility], [address] [place] [address], [id number], [place] tel: [employer] [facility] depo shot (chief complaint) Encounter for surveillance of injectable contraceptive 7 Jacob May. [address] [place] [address], [id number], [place]. tel: [phone] [facility], [address] [place] [address], [id number], [place] tel: [employer] No Information 7 Phoenix Johnson. [address] [place] [address], [id number], [place]. tel: [phone] [facility], [address] [place] [address], [id number], [place] tel: [employer] check (chief complaint) examination following vaginal deliveryInitiati on of Depo ProveraEncounter for test, result negative Phoenix Johnson. [address] [place] [address], [id number], [place]. tel: [phone] [facility], [address] [place] [address], [id number], [place] tel:+ [employer] Channel routine (chief complaint) Encounter for supervision of normal , 3rd trimester 7 Carlos Urbina. [address] [place], [address]. tel: [facility], [address] [place] [address], [id number], [place] tel: [employer] Channel routine (chief complaint) Encounter for supervision of normal , 3rd trimesterEncount er for screening for other disorder 7 Carlos Short [facility] [place], [address]. tel: [facility], [address] [place] [address], [phone], [place] tel:+ [employer] [place] routine (chief complaint) Encounter for supervision of normal , 3rd trimesterLeukocy jerad in urine 7 Carlos Short [employer] [place], [address]. tel: [facility], [address] [place] [address], [id number], [place] tel: [employer] Channel routine (chief complaint) Encounter for supervision of normal , 3rd trimester Feb- 7 Carlos Short [place] [place], [address]. tel: [facility], [address] [place] [address], [phone], [place] tel: [employer] [place] routine (chief complaint) Encounter for supervision of normal , 3rd trimester 7 Carlos Short [employer] [place], [address]. tel: [facility], [address] [place] [address], [id number], [place] tel:[phone] [employer] [facility] routine (chief complaint) Encounter for supervision of normal , 3rd trimester 7 Carlos Short [employer] [place], [address]. tel: [facility], [address] [place] [address], [id number], [place] tel:[phone] [employer] routine (chief complaint) Encounter for supervision of normal , 3rd trimester Fe 7 Thor Ciara. [address] [place] [address], [id number]. tel:00 [facility], [address] [place] [address], [id number], [place] tel: [employer] routine (chief complaint) Encounter for supervision of normal , 3rd trimester 7 Carlos Urbina. [address] [place] [address], [address]. tel:00 [facility], [address] [place] [address], [id number], [place] tel: [employer] routine (chief complaint) Encntr for suprvsn of normal preg, unsp, second trimester 7 Florian Godoy. [address] [place] [address], [id number], [place]. tel: [phone] [facility], [address] [place] [address], [id number], [place] tel: [employer] [facility] routine (chief complaint) Encounter for supervision of normal , 2nd trimester 7 No Information [facility], [address] [place] [address], [id number], [place] tel: [employer] routine (chief complaint) Encounter for supervision of normal , 2nd trimesterLeukocy jerad in urine 6 Carlos Urbina. [address] [place] [address], [address]. 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 [address] [place] [address], [id number], [place]. tel: [phone] [facility], [address] [place] [address], [id number], [place] tel: [employer] cpsp (chief complaint) Encounter for supervision of other normal , first trimester 6 Peter Fraga. [address] [place] [address], [id number], [place]. tel:[phone] [facility], [address] [place] [address], [id number], [place] tel:[phone] [facility] Channel UPT (chief complaint) Amenorrhea, unspecified 6 Provider Nursing. [address] [place] [address], [id number], [place]. tel:[phone] Family History Family Member Type Diagnosis Age At Onset Problem (finding) No family history of Di abetes mellitus Problem (finding) No family history of Hy pertension Immunizations Vaccine Date Status Comments Tdap administered Source: [facility] unization Record Influenza, injectable, quadrivalent, preservative free, split virus 3 years or older, Fluarix Quad [id number] administered Source: Ne w Immunization Record Payers Payer name Insurance type Covered constitution party ID Authoriza tion(s) [facility]- Health [facility] [id number] [employer] [facility] [id number] [facility] [id number] [facility] [id number] Social History Type Description Quantity Date Captured [...] check 21yo s/p S VD 03[birth year]24[birth year]17 male infant 7#6oz. Patient and is w/o complaints. routine [...] coronavirus Supportive measures: warm fluids, tylenol, rest, retirement in place Related to Viral upper respiratory tract infection Neg Screen Related to Encou nter for screening for depression Order CV19 testConti nue to retirement in place; social distance from other family [...] bleeding etc to patient as translated in Zimbabwean.RTC in 3 months and as needed.Patient voiced [...] L&D- Plans to breastfeed and deliver at [facility]- Urine sent for C&S Related to Encounter [...] labor- Plans to breastfeed and deliver at [facility]. Related to Encounter for supervision of normal , 3rd trimester IUP @ 34w4d- Taking Iron daily- KENYA and s/s of PTL reviewed- expecting a boy, plans to breastfeed and deliver at [facility]- Discussed pain control options during labor. Would [...] boy- Plans to breastfeed; will deliver at [facility] Related to Encounter for supervision of normal [...] with no complications. Knows to go to [facility] for delivery- RTC in 4 weeks Related [...]
--- NOTE | ~2025-08-15 | XR_ITS ---
CLINICAL HISTORY: fracutre? 3 view right foot Comparison: None provided Findings: Bones intact. No dislocations. No significant loss of joint space, osteophytes, or erosions. No ankle effusion. No radiopaque foreign body. IMPRESSION: 1. No acute findings. This document has been electronically signed by: Joni Valencia MD on 08/15/2025 21:09:22
--- NOTE | ~2025-08-15 | XR_ITS ---
CLINICAL HISTORY: RIght ankle pain 3 view right ankle Comparison: None provided Findings: Diffuse soft tissue swelling throughout the right ankle. Very subtle cortical irregularity along the lateral malleolus, only seen on the oblique view, which may represent a small nondisplaced fracture. No other fractures or dislocations seen. The ankle mortise is intact. No radiopaque foreign body. IMPRESSION: Diffuse soft tissue swelling throughout the right ankle and possible small nondisplaced fracture of the lateral malleolus This document has been electronically signed by: Joni Valencia MD on 08/15/2025 21:13:17
[2025-08-15 19:39] VITALS: BP 149/96; PULSE 87; RESP 16; TEMP 35.9; O2SAT 95; BMI 32.1
--- NOTE | 2025-08-15 19:44 | ED_ITS ---
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 She reports that she was walking up the stairs when she felt a burning sensation in the right ankle. She reports that this pain cause her to sit down but she would not fall. She is able to walk after a few minutes of rest. She states that the pain and has happened 6 times today in his now causing her to have pain in her right knee. She has not had any trauma. No swelling or redness. Denies any fevers. Denies any history of diabetes she took naproxen with limited relief Related Data Previous Rx's ?Medication ?Instructions ?Recorded naproxen 500 mg tablet 500 mg PO BID PRN pain #20 t abs 11/20/20 naproxen 500 mg tablet 500 mg PO BID PRN pain #20 t abs 11/20/20 cyclobenzaprine 5 mg tablet 5 mg PO TID PRN muscle spa sm #14 07/27/21 tabs ibuprofen 600 mg tablet 600 mg PO Q8H PRN pain #14 t abs 07/27/21 lidocaine 5 % topical patch 1 patch topical DAILY #15 ea 07/27/21 (Lidoderm) cyclobenzaprine 5 mg tablet 5 mg PO Q8H PRN pain (scal e score 08/05/21 7-10) 5 days #14 tabs lidocaine 5 % topical patch 1 patch topical DAILY PRN pain #30 08/05/21 (Lidoderm) ea naproxen 500 mg tablet 500 mg PO BID PRN pain 10 da ys #20 08/05/21 tabs ondansetron 4 mg disintegrating 4 mg PO Q6H PRN nausea and 11/14/23 tablet vomiting #14 tabs benzocaine 15 mg-menthol 2.6 mg 1 festus mucous membrane Q2-4H PRN 02/20/24 lozenges (Cepacol Sore Throat sore throat #16 ea (benzocaine-menthol)) penicillin V potassium 500 mg 500 mg PO BID 10 days #2 0 tabs 02/20/24 tablet penicillin V potassium 500 mg 500 mg PO BID #19 tabs 0 02/07/25 tablet Allergies Allergy/AdvReac Type Severity Reaction Status Date / Time oxycodone (From PERCOCET) Allergy Unknown RASH Verified 08/15/25 19:40 Review of Systems Constitutional: Constitutional: Denies body ache(s), Denies chills, Denies fever(s) and Denies headache(s) Eyes: Eyes: Denies blurry vision ENT: Denies dizziness and Denies headache(s) Musculoskeletal: Musculoskeletal: Reports arthralgias, Denies joint swelling and Reports limited range of motion Integumentary/Breasts: Skin/Breast: Denies erythema and Denies rash Neurologic: Denies dizziness and Denies headache(s) [facility] Past Medical History Surgical History History of cholecystectomy Social History Social History Advance Directives: No Advance Directives Information Provided: Yes Physical Exam ED Vital Signs: Vital Signs - 24 hr 08/15/25 19:39 08/15/25 21:46 Temperature 96.7 F L 96.7 F L Pulse Rate 87 87 Respiratory Rate 16 16 Blood Pressure 149/96 H 149/96 H Pulse Oximetry 95 95 Oxygen Delivery Method Room Air Room Air BMI result Body Mass Index 32.1 Const General: healthy appearing, comfortable, no acute distress, alert and awake Nutritional Appearance: well nourished Orientation/consciousness: patient oriented x3 HENMT Head: Yes normocephalic and Yes atraumatic Eyes Eyelids: Yes eyelids normal Conjunctivae: conjunctivae normal Sclerae: sclerae normal Corneas: corneas normal Pupils: Equal, round and reactive pupils present EOM: EOMs intact bilaterally Neck Neck: Yes full ROM Resp Effort & Inspection: normal respiratory effort, able to speak in complete sentences and not labored GI Inspection: No distended Palpation (GI): Soft to palpation, not firm, nontender, no guarding and not rigid Skin General skin exam: elasticity normal Neuro General: patient oriented x3 Cranial nerves: Yes Equal, round and reactive pupils present and Yes Bilaterally intact EOM present Cognition (Neuro): normal cognition Extrem Other: There was no obvious deformity to the right lower extremity at the knee or lower leg or ankle. There was no significant tenderness on exam. There was no calf pain, negative Homans sign. No significant skin changes such as erythema or ecchymosis, no wounds noted. Course Course Course Narrative: RMGina: 29-year-old female presents to ED for right ankle pain that occurred while walking yesterday. Patient denies any blunt trauma swelling calf pain coughing up blood fever chills redness or recent travel. Reevaluation(s) Reevaluation #1: The patient's ankle x-ray shows diffuse soft tissue edema and a questionable fracture lateral malleolus. I feel this is unlikely to be an acute fracture the patient has no tenderness over the lateral malleolus around the dorsal of the proximal mid foot. The patient was given an Aircast but was not splinted, she was still referred to Orthopedics and given crutches Time: 21:32 Medical Decision Making Medical Decision Making MDM Narrative: The patient had no traumatic injury, her physical exam is quite reassuring, there was no evidence of infection, there was no calf pain or swelling to suggest DVT, no skin changes. She reports walking long periods of the day I suspect her pain may be related to a tendinitis or bursitis of the right knee. Plan for crutches and symptoms Differential Diagnosis Differential Diagnoses: The differential diagnosis associated with the presentation includes Right knee bursitis Tendonitis Ankle sprain Fracture DVT less likely Independent Interpretation I performed an independent interpretation of an: Plain X-Ray (No obvious fracture of the right ankle or knee) Radiology Impression Discussion of test interpretation with radiology: I have reviewed the radiologist's reading. Radiologist Impression: Findings: Diffuse soft tissue swelling throughout the right ankle. Very subtle cortical irregularity along the lateral malleolus, only seen on the oblique view, which may represent a small nondisplaced fracture. No other fractures or dislocations seen. The ankle mortise is intact. No radiopaque foreign body. IMPRESSION: Diffuse soft tissue swelling throughout the right ankle and possible small nondisplaced fracture of the lateral malleolus This document has been electronically signed by: Joni Valencia MD on 08/15/2025 21:13:17 Discharge Plan Discharge Clinical Impression: Right leg pain Patient Disposition: Home, Self-Care Instructions: Leg Pain (ED) Additional Instructions: Your pain is most consistent with a overuse injury such as tendinitis or bursitis. You may use the crutches to allow your right leg to rest. Use naproxen as prescribed for 5 days. Apply ice to the sore area. Return for new or worsening symptoms Prescriptions: No Action lidocaine [Lidoderm] 5 % adhesive patch,medicated 1 patch topical DAILY Qty: 15 0RF Rx Instructions: leave on most painful area for up to 12 hrs ibuprofen 600 mg tablet 600 mg PO Q8H PRN (Reason: pain) Qty: 14 0RF cyclobenzaprine 5 mg tablet 5 mg PO TID PRN (Reason: muscle spasm) Qty: 14 0RF naproxen 500 mg tablet 500 mg PO BID PRN (Reason: pain) Qty: 20 0RF naproxen 500 mg tablet 500 mg PO BID PRN (Reason: pain) Qty: 20 0RF lidocaine [Lidoderm] 5 % adhesive patch,medicated 1 patch topical DAILY MDD remove after 12 hours PRN (Reason: pain) Qty: 30 0RF Rx Instructions: leave on most painful area for up to 12 hrs naproxen 500 mg tablet 500 mg PO BID PRN (Reason: pain) 10 Days Qty: 20 0RF cyclobenzaprine 5 mg tablet 5 mg PO Q8H PRN (Reason: pain (scale score 7-10)) 5 Days Qty: 14 0RF ondansetron 4 mg tablet,disintegrating 4 mg PO Q6H PRN (Reason: nausea and vomiting) Qty: 14 0RF penicillin V potassium 500 mg tablet 500 mg PO BID 10 Days Qty: 20 0RF Cepacol Sore Throat (leigh-men) 15-2.6 mg lozenge 1 festus mucous membrane Q2-4H PRN (Reason: sore throat) Qty: 16 0RF penicillin V potassium 500 mg tablet 500 mg PO BID Qty: 19 0RF Referrals: [facility] [Provider Group] Referral Note: ? ankle fracture Interventions: ED Discharge Assessment Last Done: 08/15/25 21:46 Discharge Date/Time: 08/15/25 21:47 Print Language: Swazi
--- OUTSIDE RECORDS SUMMARY | 2025-08-15 20:12 | XMS_ITS | Clinical Summary ---
Author Organization [facility] ity Address [address] [place] [address] Care Team Providers Care Drafter Marine Name Role Phone Marisa Merino MD Primary Care Provider [phone] Social History Tobacco Use Types Packs/Day Years [...] Cervical Cancer Screening: P ap Smear 2015 HIV Screening 09/05/2024 Hepatitis C Screening 09/05/2024 Social Influencers of Health Screening 09/05/2024 Depression Screening 11/29/2024 COVID-19 Vaccine ( - 2023-2 5 season) 2025 Influenza Vaccine (#1) 2025 HIB Vaccines Aged Out No longer eligi [...] age to complete this topic Meningococcal B Vaccine Aged Out No l onger eligible based on patient's age to complete this topic Pneumococcal Vaccine: Pediat rics (0 to 5 Years) and At-Risk Patients (6 to 49 Years) Aged Out No longer eligible b ased on patient's age to complete this topic RSV Immunization Patients Un aaron 20 months Aged Out No longer eligible b ased on patient's age to complete this topic Varicella Vaccines Aged Out No longer eligible based on patient's age to complete this topic Care Teams Drafter Marine Relationship Specialty Start Date End Date Marisa Merino MD [address] [place] [address] [place] [address] PCP - General 06/26/24
[2025-08-15 21:46] VITALS: BP 149/96; PULSE 87; RESP 16; TEMP 35.9; O2SAT 95
== END 2025-08-15 21:47 | disposition home or self-care (01) ==
PROVIDERS: Emergency Provider Student in an Organized Health Care Education/Training Program; PCP Internal Medicine
DX: M79.604 Pain in right leg (principal); M25.571 Pain in right ankle and joints of right foot
CPT/HCPCS: 73600; 73620; 99283

== ENCOUNTER → 2025-08-15 19:44 | Outpatient (BNV) | payer MEDICAID, SELFPAY | PROVIDERS: Emergency Provider Student in an Organized Health Care Education/Training Program; PCP Internal Medicine; Visit Provider Student in an Organized Health Care Education/Training Program | DX: M25.571 Pain in right ankle and joints of right foot (principal); M79.671 Pain in right foot | CPT/HCPCS: 73600; 73620 ==

== ENCOUNTER 2025-09-07 08:56 | Outpatient (AMB) | payer MEDICAID, SELFPAY ==
--- OUTSIDE RECORDS SUMMARY | 2022-05-06 06:49 | XMS_ITS | Continuity of Care Document ---
Author Organization [facility] [employer] Address [address] [place] [address] Phone Care Team Providers Care Carpenters Helper Name Role Phone Mayes CHRISTEL Pasha Unavailable [...] Orientation HEd 15 Minutes Test (also Use 25384) 016 URINE TEST Advance Directives Directive Yes / No Effective Date File Name No Information Encounters Encounter Description Practice Location Reason(s) For Visit Diagnoses Date Provider Providers Copied on Encounter [facility] [employer] [facility], [address] [address], [id number], [place] tel:[phone] [facility] [address] Channel No Information 2 Gerber Mccormickto. [address] [place] [address], [id number], [place]. tel:[phone] [facility], [address] [address], [id number], [place] tel:[phone] [facility] [place] COVID test (chief complaint) Exposure to 2019 novel coronavirus 0 Provider Nursing. [address] [place] [address], [id number], [place]. tel:[phone] OFFICE VISIT, EST LOW [facility], [address] [place] [address], [id number], [place] tel: [facility] COVID-19 Screening (chief complaint) Viral upper respiratory tract infectionExposur e to 2019 novel coronavirusEncou nter for screening for depression 0 Warren Oneill. [address] [place], [address], [place]. tel: OFFICE VISIT, EST LOW [facility], [address] [place] [address], [id number], [place] tel: [facility] Channel depo provera (chief complaint) Encounter for management and injection of depo-Provera 7 No Information OFFICE VISIT, EST LMTD [facility], [address] [place] [address], [id number], [place] tel: [facility] depo shot (chief complaint) Encounter for surveillance of injectable contraceptive 7 Jacob May. [address] [place] [address], [id number], [place]. tel: [phone] [facility], [address] [place] [address], [id number], [place] tel: [facility] [place] No Information 7 Phoenix Johnson. [address] [place] [address], [id number], [place]. tel: [phone] [facility], [address] [place] [address], [id number], [place] tel: [facility] Channel check (chief complaint) examination following vaginal deliveryInitiati on of Depo ProveraEncounter for test, result negative Phoenix Johnson. [address] [place] [address], [id number], [place]. tel: [phone] [facility], [address] [place] [address], [id number], [place] tel:+ [facility] Channel routine (chief complaint) Encounter for supervision of normal , 3rd trimester 7 Carlos Urbina. [address] [place], [address]. tel: [facility], [address] [place] [address], [id number], [place] tel: [facility] Channel routine (chief complaint) Encounter for supervision of normal , 3rd trimesterEncount er for screening for other disorder 7 Carlos Short [facility] [place], [address]. tel: [facility], [address] [place] [address], [phone], [place] tel:+ [facility] Channel routine (chief complaint) Encounter for supervision of normal , 3rd trimesterLeukocy jerad in urine 7 Carlos Short [employer] [place], [address]. tel: [facility], [address] [place] [address], [id number], [place] tel: [facility] Channel routine (chief complaint) Encounter for supervision of normal , 3rd trimester Feb- 7 Carlos Short [place], [address]. tel: [facility], [address] [place] [address], [id number], [place] tel: [facility] Channel routine (chief complaint) Encounter for supervision of normal , 3rd trimester 7 Carlos Short [employer] [place], [address]. tel: [facility], [address] [place] [address], [id number], [place] tel:[phone] [facility] routine (chief complaint) Encounter for supervision of normal , 3rd trimester 7 Carlos Short [employer] [place], [address]. tel: [facility], [address] [place] [address], [id number], [place] tel:[phone] [facility] Channel routine (chief complaint) Encounter for supervision of normal , 3rd trimester Fe 7 Thor Ciara. [address] [place] [address], [id number]. tel:00 [facility], [address] [place] [address], [phone], [place] tel: [employer] routine (chief complaint) Encounter for supervision of normal , 3rd trimester 7 Carlos Urbina. [address] [place] [address], [id number]. tel:00 [facility], [address] [place] [place] [address], [id number], [place] tel: [employer] routine (chief complaint) Encntr for suprvsn of normal preg, unsp, second trimester 7 Florian Godoy. [address] [place] [place] [address], [id number], [place]. tel: [phone] [facility], [address] [place] [address], [id number], [place] tel: [facility] Channel routine (chief complaint) Encounter for supervision of normal , 2nd trimester 7 No Information [facility], [address] [place] [address], [id number], [place] tel: [employer] routine (chief complaint) Encounter for supervision of normal , 2nd trimesterLeukocy jerad in urine 6 Carlos Urbina. [address] [place] [address], [id number]. tel: [facility], [address] [place] [address], [phone], [place] tel: [employer] (chief complaint) Encntr for ob/gyn exam (general) (routine) w/o abn findingsEncounte r for suprvsn of normal , first trimester 6 Kennedy Senzan. [address] [place] [address], [id number], [place]. tel: [phone] [facility], [address] [place] [address], [id number], [place] tel: [employer] cpsp (chief complaint) Encounter for supervision of other normal , first trimester 6 Peter Fraga. [address] [place] [address], [id number], [place]. tel:[phone] [facility], [address] [place] [place] [address], [id number], [place] tel:[phone] [facility] Channel UPT (chief complaint) Amenorrhea, unspecified 6 Provider Nursing. [address] [place] [address], [id number], [place]. tel:[phone] Family History Family Member Type Diagnosis Age At Onset Problem (finding) No family history of Di abetes mellitus Problem (finding) No family history of Hy pertension Immunizations Vaccine Date Status Comments Tdap administered Source: [facility] unization Record Influenza, injectable, quadrivalent, preservative free, split virus 3 years or older, Fluarix Quad 0920-6534 administered Source: Ne w Immunization Record Payers Payer name Insurance type Covered republican ID Authoriza tion(s) [facility]- Health [facility] [id number] [employer] [facility] [id number] [facility] [id number] [facility] [id number] Social History Type Description Quantity Date Captured [...] coronavirus Supportive measures: warm fluids, tylenol, rest, mcfp in place Related to Viral upper respiratory tract infection Neg Screen Related to Encou nter for screening for depression Order CV19 testConti nue to mcfp in place; social distance from other family [...] bleeding etc to patient as translated in Georgian.RTC in 3 months and as needed.Patient voiced [...] L&D- Plans to breastfeed and deliver at [facility]- Urine sent for C&S Related to Encounter [...] labor- Plans to breastfeed and deliver at [facility]. Related to Encounter for supervision of normal , 3rd trimester IUP @ 34w4d- Taking Iron daily- KENYA and s/s of PTL reviewed- expecting a boy, plans to breastfeed and deliver at [facility]- Discussed pain control options during labor. Would [...] boy- Plans to breastfeed; will deliver at [facility] Related to Encounter for supervision of normal [...] with no complications. Knows to go to [facility] for delivery- RTC in 4 weeks Related [...]
[2025-09-07 09:04] VITALS: BMI 32.3
--- NOTE | 2025-09-07 09:04 | A.OFFVIS_ITS ---
Vital Signs 09/07/25 09:04 Height 4 ft 11 in Weight 160 lb BMI 32.3 Intake Visit Reasons: BREANN foot pain Intake Note: Lucas is a 29 year old female who presents today as a new patient for an evaluation of her bilateral foot pain. She states the pain has been going on for over 1 year and she says the pain has worsened over time. Pain is located bilaterally on the hindfoot. Patient reports when she went to the ED she was prescribed naproxen and she found slight relief however the pain comes back. Ankle X-ray IMPRESSION: Diffuse soft tissue swelling throughout the right ankle and possible small nondisplaced fracture of the lateral malleolus Foot X ray IMPRESSION: 1. No acute findings. Grey Goods Marker Required: Yes Grey Goods Marker Services: Grey Goods Marker Present Grey Goods Marker Name: [id number] Allergies oxycodone (From PERCOCET) Allergy (Unknown, Verified 09/07/25 09:05) RASH HPI HPI BREANN foot pain: Details: The patient is a 29-year-old female presenting with bilateral lower extremity foot, ankle, and knee pain and swelling. The symptoms have been ongoing for over a year, and she has not seen any other doctors due to the passing of her previous physician. Pain is present diffusely over her feet and ankles, present even when not ambulating. She also notes a 'cracking' sensation in her knees. She denies any history of injuries to her feet and ankles. She finds that her shoes are wearing out quickly and she is unable to find comfortable shoe wear or support. Family History: - Family history of rheumatoid arthritis [facility] Surgical History History of cholecystectomy Review of Systems Const All systems reviewed & are unremarkable except as noted in HPI and below Physical Exam Vital Signs: BMI result Body Mass Index 32.3 Extrem Other: *Bilateral Lower Extremity Focused Exam Vascular: DP/PT 2/4, CFT<3s to all digits, mild increased warmth to bilateral lower extremities, worse to the bilateral ankles. Diffuse nonpitting edema bilateral feet and ankles. Derm: No erythema or clinical signs of infection. Neuro: Protective sensation grossly intact to bilateral lower extremities MSK: Right hallux dorsiflexion 20 degrees with pain at end range of motion, left hallux dorsiflexion 45 degrees. Bilateral ankle dorsiflexion 0 degrees on neutral position with pain and crepitus at end range of motion. Unrestricted subtalar joint range of motion. Moderate arch. Results Reviewed Results Reviewed: Podiatry X-ray Read: 08/15/2025 X-ray right foot 3 views (AP, MO, Lateral) reviewed which shows asymmetric narrowing with perichondral cyst formation of the right 1st 2nd and 3rd metatarsophalangeal with flattening of the metatarsal heads. Fourth metatarsal head mild flattening with subchondral cyst formation and medial deviation of the 4th toe. Sclerosis and flattening/remodeling of the navicular. I personally reviewed the imaging and my findings are listed above. Podiatry X-ray Read: 08/15/2025 X-ray right ankle 3 views (AP, Mortise, Lateral) reviewed which shows flattening of the talar dome with large tibial subchondral cyst measuring 6 mm x 8 mm. Asymmetric joint space narrowing of the tibiotalar joint. I personally reviewed the imaging and my findings are listed above. Assessment & Plan Assessment & Plan (1) Ankle arthritis: Code(s): M19.079 - Primary osteoarthritis, unspecified ankle and foot Category: Medical Qualifiers: Laterality: bilateral Qualified Code(s): M19.071 - Primary osteoarth ritis, right ankle and foot; M19.072 - Primary osteoarthritis, left ankle and foot Plan: * Reviewed right foot and ankle x-rays. * Explained that she has arthritic changes to her ankle joint with remodeling of the talus. In the setting of no trauma, these findings are consistent with systemic inflammatory condition. * Discussed that she may require a joint aspiration versus cortisone injection in the future. * She may require an AFO brace if her symptoms do not improve after Rheumatology workup and treatment. * The patient may be a candidate for cartilage resurfacing if her ankle joint improves after starting systemic medication, or eventually requiring ankle fusion in the future. * Follow up in 1 month (2) Polyarthritis: Code(s): M13.0 - Polyarthritis, unspecified Category: Medical Plan: * Referred for rheumatology workup. The patient states she has a history of rheumatoid arthritis. (3) Polyarthralgia: Code(s): M25.50 - Pain in unspecified joint Category: Medical Plan: * Rx Medrol Dosepak (4) Hallux rigidus of both feet: Code(s): M20.21 - Hallux rigidus, right foot; M20.22 - Hallux rigidus, left foot Category: Medical Plan: * Discussed orthotics in the future which would include a Tripathi's extension. Orders: Referrals Rheumatology Referral M13.0 - Polyarthritis, unspecified, M19.079 - Primary osteoarthritis, unspecified ankle and foot, M25.50 - Pain in unspecified joint Medications: New methylprednisolone Take 6 tablets on day 1, 5 tablets on day 2, 4 tablets on day 3, 3 tablets on day 4, 2 tablets on day 5, and 1 tablet on day 6. 4 mg PO PER PKG DIR 21 ea 0RF arthritis M13.0 - Polyarthritis, unspecified, M19.079 - Primary osteoarthritis, unspecified ankle and foot Coding Level of Care Code New Pt Level 4 (84248) Diagnoses Arthritis of both ankles M19.071; M19.072 Laterality: bilateral Polyarthritis M13.0 Polyarthralgia M25.50 Hallux rigidus of both feet M20.21; M20.22 Time Spent (min) 30
--- OUTSIDE RECORDS SUMMARY | 2025-09-07 09:18 | XMS_ITS | Clinical Summary ---
Author Organization [facility] it Address [address] [place] [address] Care Team Providers Care Fire Protection Equipment Technician Name Role Phone Marisa Merino MD Primary Care Provider [phone] Social History Tobacco Use Types Packs/Day Years [...] Cervical Cancer Screening: P ap Smear 2015 HPV Vaccines (1 - 3-dose SCD M series) 2021 HIV Screening 09/05/2024 Hepatitis C Screening 09/05/2024 Social Influencers of Health Screening 09/05/2024 Depression Screening 11/29/2024 COVID-19 Vaccine ( - 2023-2 5 season) 2025 Influenza Vaccine (#1) 2025 RSV Immunization Adult Patie nts (1 - 1-dose 75+ series) 2069 HIB Vaccines Aged Out No longer eligi [...] age to complete this topic Care Teams Fire Protection Equipment Technician Relationship Specialty Start Date End Date Marisa Merino MD [address] [place] [address] [place] [address] PCP - General 06/26/24
== END 2025-09-07 09:33 | disposition home or self-care (01) ==
PROVIDERS: PCP Internal Medicine; Visit Provider Student in an Organized Health Care Education/Training Program
DX: M19.071 Primary osteoarthritis, right ankle and foot (principal); M19.072 Primary osteoarthritis, left ankle and foot; M13.0 Polyarthritis, unspecified; M25.50 Pain in unspecified joint; M20.21 Hallux rigidus, right foot; M20.22 Hallux rigidus, left foot
CPT/HCPCS: 99204

== ENCOUNTER → 2025-09-07 08:56 | Outpatient (BNVA) | payer MEDICAID, SELFPAY | PROVIDERS: PCP Internal Medicine; Visit Provider Student in an Organized Health Care Education/Training Program | DX: M19.071 Primary osteoarthritis, right ankle and foot (principal); M19.072 Primary osteoarthritis, left ankle and foot; M25.50 Pain in unspecified joint; M20.21 Hallux rigidus, right foot; M20.22 Hallux rigidus, left foot | CPT/HCPCS: 99202 ==

== ENCOUNTER 2025-09-18 09:41 | Outpatient (REF) | payer MEDICAID, SELFPAY ==
[2025-09-18 12:26] LABS: CT PCR Urine NOT DETECTED (Not Detect.); NG PCR Urine NOT DETECTED (Not Detect.)
[2025-09-18 12:40] LABS: Alanine Aminotransferase 22 U/L (0-31); Albumin Level 4.7 g/dL (3.5-5.0); Alkaline Phosphatase 64 U/L (39-117); Anion Gap 10 (12-20); Aspartate Amino Transferase 19 U/L (5-31); Blood Urea Nitrogen 9 mg/dL (9-16); Calcium 9.4 mg/dL (8.4-10.2); Carbon Dioxide 27 mmol/L (22-29); Chloride 106 mmol/L (96-108); Estimated Glomerular Filt Rate > 60; Potassium 3.6 mmol/L (3.3-5.1); Sodium 139 mmol/L (135-145); Total Protein 7.9 g/dL (6.5-8.0)
[2025-09-18 13:48] LABS: Thyroid Stimulating Hormone 1.02 uIU/mL (0.32-4.0)
== END 2025-09-18 09:42 | disposition home or self-care (01) ==
LOC: HO.LAB 09:41
PROVIDERS: PCP Internal Medicine; Visit Provider Internal Medicine
DX: Z00.00 Encounter for general adult medical examination without abnormal findings (principal); Z13.31 Encounter for screening for depression; Z20.2 Contact with and (suspected) exposure to infections with a predominantly sexual mode of transmission; Z68.35 Body mass index [BMI] 35.0-35.9, adult
CPT/HCPCS: 80053; 84443; 87491; 87591

== ENCOUNTER 2025-10-04 13:10 | Outpatient (AMB) | payer MEDICAID, SELFPAY ==
--- OUTSIDE RECORDS SUMMARY | 2022-05-06 05:49 | XMS_ITS | Continuity of Care Document ---
Author Organization [facility] [employer] Address [address] [place] [address] Phone Care Team Providers Care Secure Software Assessor Name Role Phone Mayes CHRISTEL Pasha Unavailable Unavailabl e Allergies, Adverse Reactions, Alerts Substance Reaction Status Criticality No Known Allergies Active No Inform ation Medications Medication Instructions Dosage Effective Dates (start - stop) Status Comments iron 325 mg (65 mg iron) tablet take 1 tablet by oral route every day 1 tablet - Active Vitamin tablet take 1 tablet by oral route every day - Active Problems Condition Type Effective Dates (start - stop) Clini marcelino Status Comments No Known Problems Procedures Procedure Date Labs XRays IZ OFFICE VISIT, EST LOW SEV OFFICE VISIT, EST LOW SEV Medoxyprogesterone acetate inj 150 Mg No OFFICE VISIT, EST LMTD SEV Medoxyprogesterone acetate inj 150 Mg Au OB Visit URINE TEST HEMOGLOBIN Medrxyprogester acetate inj 150 Mg URINALYSIS, AUTO, W/O SCOPE OB Antepartum Visit URINALYSIS, AUTO, W/O SCOPE BRIEF EMOTIONAL/BEHAV ASSMT OB Antepartum Visit URINALYSIS, AUTO, W/O SCOPE OB Antepartum Visit URINALYSIS, AUTO, W/O SCOPE OB Antepartum Visit URINALYSIS, AUTO, W/O SCOPE OB Antepartum Visit URINALYSIS, AUTO, W/O SCOPE OB Antepartum Visit URINALYSIS, AUTO, W/O SCOPE OB Antepartum Visit URINALYSIS, AUTO, W/O SCOPE OB Antepartum Visit URINALYSIS, AUTO, W/O SCOPE OB Antepartum Visit IMMUNIZATION ADMIN TDAP VACCINE >7 IM OB Antepartum Visit URINALYSIS, AUTO, W/O SCOPE IMMUNIZATION ADMIN URINALYSIS, AUTO, W/O SCOPE OB Antepartum Visit Fluarix FlU VAC NO PRSV 4 LOBITO 3 YRS+ Sep URINALYSIS, AUTO, W/O SCOPE CYTOPATH TBS, C/V, MANUAL Initial Comprehensive 016 Client Orientation HEd 15 Minutes Test (also Use 98921) 016 URINE TEST Advance Directives Directive Yes / No Effective Date File Name No Information Encounters Encounter Description Practice Location Reason(s) For Visit Diagnoses Date Provider Providers Copied on Encounter [facility] [employer] [facility], [address] [place] [address], [id number], [place] tel:[phone] [facility] [address] No Information 2 Gerber Mccormickto. [address] [place] [address], [id number], [place]. tel:[phone] [facility], [address] [place] [address], [id number], [place] tel:[phone] [facility] [place] COVID test (chief complaint) Exposure to 2019 novel coronavirus 0 Provider Nursing. [address] [place] [address], [id number], [place]. tel:[phone] OFFICE VISIT, EST LOW [facility], [address] [place] [address], [id number], [place] tel: [employer] Michael COVID-19 Screening (chief complaint) Viral upper respiratory tract infectionExposur e to 2019 novel coronavirusEncou nter for screening for depression 0 Warren Oneill. [address] [place], [address], [place]. tel: OFFICE VISIT, EST LOW [facility], [address] [place] [address], [id number], [place] tel: [employer] Channel depo provera (chief complaint) Encounter for management and injection of depo-Provera 7 No Information OFFICE VISIT, EST LMTD [facility], [address] [place] [address], [id number], [place] tel: [employer] Channel depo shot (chief complaint) Encounter for surveillance of injectable contraceptive 7 Jacob May. [address] [place] [address], [id number], [place]. tel: [phone] [facility], [address] [place] [address], [id number], [place] tel: [employer] George No Information 7 Phoenix Johnson. [address] [place] [address], [id number], [place]. tel: [phone] [facility], [address] [place] [address], [id number], [place] tel: [employer] Channel check (chief complaint) examination following vaginal deliveryInitiati on of Depo ProveraEncounter for test, result negative Phoenix Johnson. [address] [place] [address], [id number], [place]. tel: [phone] [facility], [address] [place] [address], [id number], [place] tel:+ [employer] Channel routine (chief complaint) Encounter for supervision of normal , 3rd trimester 7 Carlos Urbina. [address] [place], [address]. tel: [facility], [address] [place] [address], [id number], [place] tel: [employer] Channel routine (chief complaint) Encounter for supervision of normal , 3rd trimesterEncount er for screening for other disorder 7 Carlos Short [facility] [place], [address]. tel: [facility], [address] [place] [address], [id number], [place] tel:+ [employer] Channel routine (chief complaint) Encounter for supervision of normal , 3rd trimesterLeukocy jerad in urine 7 Carlos Short [place], [address]. tel: [facility], [address] [place] [address], [id number], [place] tel: [employer] Channel routine (chief complaint) Encounter for supervision of normal , 3rd trimester Feb- 7 Carlos [place], [address]. tel: [facility], [address] [place] [address], [id number], [place] tel: [employer] Channel routine (chief complaint) Encounter for supervision of normal , 3rd trimester 7 Carlos [place], [address]. tel: [facility], [address] [place] [address], [id number], [place] tel:[phone] [employer] Channel routine (chief complaint) Encounter for supervision of normal , 3rd trimester 7 Carlos [place], [address]. tel: [facility], [address] [place] [address], [id number], [place] tel:[phone] [employer] Channel routine (chief complaint) Encounter for supervision of normal , 3rd trimester Fe 7 Thor Ciara. [address] [place] [address], [address]. tel:00 [facility], [address] [place] [address], [id number], [place] tel: [employer] routine (chief complaint) Encounter for supervision of normal , 3rd trimester 7 Carlos Urbina. [address] [place] [address], [id number]. tel:00 [facility], [address] [place] [address], [id number], [place] tel: [employer] routine (chief complaint) Encntr for suprvsn of normal preg, unsp, second trimester 7 Florian Godoy. [address] [place] [address], [id number], [place]. tel: [phone] [facility], [address] [place] [address], [id number], [place] tel: [employer] Channel routine (chief complaint) Encounter for supervision of normal , 2nd trimester 7 No Information [facility], [address] [place] [address], [id number], [place] tel: [employer] routine (chief complaint) Encounter for supervision of normal , 2nd trimesterLeukocy jerad in urine 6 Carlos Urbina. [address] [place] [address], [id number]. tel: [facility], [address] [place] [address], [phone], [place] tel: [employer] (chief complaint) Encntr for garbage collector exam (general) (routine) w/o abn findingsEncounte r for suprvsn of normal , first trimester 6 Kennedy Senzan. [address] [place] [address], [id number], [place]. tel: [phone] [facility], [address] [place] [address], [id number], [place] tel: [employer] cpsp (chief complaint) Encounter for supervision of other normal , first trimester 6 Peter Fraga. [address] [place] [address], [id number], [place]. tel:[phone] [facility], [address] [place] [address], [id number], [place] tel:[phone] [facility] Channel UPT (chief complaint) Amenorrhea, unspecified 6 Provider Nursing. [address] [place] [address], [id number], [place]. tel:[phone] Family History Family Member Type Diagnosis Age At Onset Problem (finding) No family history of Di abetes mellitus Problem (finding) No family history of Hy pertension Immunizations Vaccine Date Status Comments Tdap administered Source: [facility] unization Record Influenza, injectable, quadrivalent, preservative free, split virus 3 years or older, Fluarix Quad [id number] administered Source: Ne w Immunization Record Payers Payer name Insurance type Covered green party ID Authoriza tion(s) [facility] [id number] [employer] [facility] [id number] [facility] [id number] [facility] [id number] Social History Type Description Quantity Date Captured Comments Sex Female Smoking Status No Information Chief Complaint And Reason For Visit No Information Plan Of Treatment Date Type Action Status Referral Ordered: OB US, DETAILED, SNGL FETUS Appointment date/timeframe: 11/04/2016 ordered Patient Education Influenza (Flu) Vaccine : Care Instruct completed History Of Present Illness Encounter Date Complaint History Of Prese nt Illness COVID test Test ordered by Warren Oneill for patient exposure to COVID COVID-19 Screening The symptoms are reported as being mild. The symptoms occur randomly. Associated symptoms include dry cough. Pertinent negatives include fever, shortness of breath. She states the symptoms are acute. Slight intermittent cough. 2 family members living in the same home are positive for CV19; approx 2 weeks ago. Father in law remains hospitalized for same. depo provera The symptoms beg an 3 months ago and generally lasts 3 Months. For Depoprovera. No c/o. Amenorrhea. Patient is aware of common side-effect of Depoprovera. depo shot Would like to co ntinue with Depo Provera. First shot was given on 04/29/17 without any complication. She is aware of the risk of osteoporosis with prolong use, but still would like to continue. Patient is aware of other methods of contraception, but declines them all. Patient is not taking Calcium/Vit D supplement for now. Denies any new medical problem since last injection. check 21yo s/p S VD 03/24/17 male 7#6oz. Patient and is w/o complaints. routine routine routine routine routine routine routine routine routine routine routine LMP was 06/12/20 16. The patient had 1 previous . cpsp cpsp pnint done per protocol.kamala/octaviano UPT Instructions Date Instruction Additional Infor luke Patient education gi dao. RTC as needed. Advised that results take about 5 days. Told to follow instructions provided by PCP and maintain isolation until results come back and further instructions are provided. Related to Exposure to 2019 novel coronavirus Supportive measures: warm fluids, tylenol, rest, longterm in place Related to Viral upper respiratory tract infection Neg Screen Related to Encou nter for screening for depression Order CV19 testConti nue to longterm in place; social distance from other family members Wear mask Frequent hand washingUse PRN Tylenol for fever/discomfortIncrease fluids, restCall clinic if symptoms return/persist Related to Exposure to 2019 novel coronavirus 1. Counseled patient compliance in getting her DMPA on time every three months.2. DMPA 150 mg IM now and every three months.3. Counseled re: regular exercise, supplement Calcium 500mg ( 1,250 mg) plus Vitamin D3 125 units tabletSig: One tablet po daily.Over the counter, written instruction with the dosage given to patient.Explain benefits, side-effects such as bone loss, irreg vaginal bleeding etc to patient as translated in Amharic.RTC in 3 months and as needed.Patient voiced understanding to all instructions provided. Related to Encounter for management and injection of depo-Provera - Depo Provera 150mg IM x 1 today- Advise to take Calcium and Vit-D3- Advise to take PNV and Folic acid daily- Review risk of wt gain and advise to eat healthy and do regular exercise. - RTC 11 to 13 weeks Related to Encounter for surveillance of injectable contraceptive IUP @ 40w4d- Denies any regular contractions. Denies LOF and VB. Reports FM.- Scheduled for IOL at 41 weeks on 03/26/17. IOL information given to patient. Pt to call L&D in the morning.- GBS positive- Expecting a boy- Reviewed KENYA and s/s of Labor- Plans to breastfeed. Related to Encounter for supervision of normal , 3rd trimester IUP @ 39w4d- Reports having some contractions at night but then contractions goes away. +FM, denies vaginal bleeding and LOF.- Expecting a boy. Is preparing for . Buying a carseat and diaper bag today.- Reviewed KENYA and s/s of Labor and when to go to L&D- Her boyfriend will be her labor support- GBS positive. Related to Encounter for supervision of normal , 3rd trimester IUP @ 38w4d- Doing w ell with no c/o. Denies ctx's, VB, & LOF. Denies urinary symptoms- Preparing for - Reviewed positive GBS status- Reviewed KENYA and s/s of labor and when to go to L&D- Plans to breastfeed and deliver at [facility]- Urine sent for C&S Related to Encounter for supervision of normal , 3rd trimester IUP @ 37w4d- Reviewe d Positive GBS status and need for abx during labor.- Expecting a boy. Having her babyshower this Wednesday. Will buy a carseat if she doesn't get one as a gift.- Reviewed KENYA and s/s of Labor- Advised to create a care plan regarding who will take care of her 6 year old son when she goes into labor. Related to Encounter for supervision of normal , 3rd trimester IUP @ 36w4d- Having a baby shower this weekend, expecting a boy.- Discussed GBS and GBS culture collected and sent to lab.- Reviewed KENYA and s/s of labor- Plans to breastfeed and deliver at [facility]. Related to Encounter for supervision of normal , 3rd trimester IUP @ 34w4d- Taking Iron daily- KENYA and s/s of PTL reviewed- expecting a boy, plans to breastfeed and deliver at [facility]- Discussed pain control options during labor. Would like to try IV pain meds before the epidural.- Discussed GBS at next visit. Related to Encounter for supervision of normal , 3rd trimester IUP @ 32w4d- Expecti ng a boy, naming him Bong- Would like to use OCP's or Patches for BCM- Would like to try having a natural - Reviewed KENYA and s/s of PTL and when to go to the hospital Related to Encounter for supervision of normal , 3rd trimester IUP @ 30w4d- KENYA and s/s of PTL reviewed- Expecting a boy- Plans to breastfeed; will deliver at [facility] Related to Encounter for supervision of normal , 3rd trimester 17w5d by LMP- Missed previous OB appts because she wasn't feeling good. Reiterated importance of attending OB visits for good outcomes for maternal and health. Pt verbalizes understanding- Taking PNV- Counseled and offered 2nd Trimester screening and pt accepts; AFP & Anatomy US ordered- Early glucose screening, urine culture and Quantiferon Gold ordered- Accepts influenza vaccine today; administered- Will breastfeed, breastfed first child with no complications. Knows to go to [facility] for delivery- RTC in 4 weeks Related to Encounter for supervision of normal , 2nd trimester cpsp pnint done per protocol.mz/ cphw Related to Encounter for supervision of other normal , first trimester toxoplasmosis precau tions (cats / raw meat) indications for ultrasound illicit / recreational drugs anticipated course of c are stt dental hygiene use of any medicatio ns (including supplements, vitamins, herbs, OTC drugs) childbirth classes / hospital facilities HIV and other routine t ests benefi ts for mom and baby Margaret B enefits of Breast Milk booklet stt danger signs during pregnanc y tobacco (ask, advise , assess, assist and arrange) alcohol risk factors identif ied by history seat belt use Assessments Type Assessment Date No Information
--- NOTE | 2025-10-04 13:34 | A.OFFVIS_ITS ---
Vital Signs 10/04/25 13:37 Height 4 ft 11 in Weight 160 lb BMI 32.3 Intake Visit Reasons: BREANN foot pain Intake Note: Lucas is a 29 year old female who presents today for a follow up on her bilateral foot pain. Pt has an appointment scheduled with rheumatology on 04/03/25. She states the Medrol dosepak has helped her manage her pain symptoms however when she completed the med her pain returned 3 days after. Pain is located in her bilateral ankle and knees and she notices she still experiences a cracking sensation in her left knee. Card Mounter Required: Yes Card Mounter Services: Card Mounter Present Card Mounter Name: [id number] Allergies oxycodone (From PERCOCET) Allergy (Unknown, Verified 10/04/25 13:37) RASH HPI HPI BREANN foot pain: Details: The patient is a 29-year-old female presenting with bilateral lower extremity foot, ankle, and knee pain and swelling. She states that most of her swelling and foot/ankle pain has resolved after she completed the Medrol Dosepak. She states she is noticing the swelling and pain now returning, and still noticing the clicking sensation to her knee. She is scheduled to see Rheumatology in March. History: The symptoms have been ongoing for over a year, and she has not seen any other doctors due to the passing of her previous physician. Pain is present diffusely over her feet and ankles, present even when not ambulating. She also notes a 'cracking' sensation in her knees. She denies any history of injuries to her feet and ankles. She finds that her shoes are wearing out quickly and she is unable to find comfortable shoe wear or support. Family History: - Family history of rheumatoid arthritis PEND[facility] SALE TO [facility] Surgical History History of cholecystectomy Review of Systems Const No All systems reviewed & are unremarkable except as noted in HPI and below Physical Exam Vital Signs: BMI result Body Mass Index 32.3 Extrem Other: *Bilateral Lower Extremity Focused Exam Vascular: DP/PT 2/4, CFT<3s to all digits, temperature gradient warm to cool bilaterally. No edema to bilateral lower extremities., Derm: No erythema or clinical signs of infection. Neuro: Protective sensation grossly intact to bilateral lower extremities MSK: Right hallux dorsiflexion 20 degrees with pain at end range of motion, left hallux dorsiflexion 45 degrees. Bilateral ankle dorsiflexion 0 degrees on neutral position with pain and crepitus at end range of motion. Unrestricted subtalar joint range of motion. Moderate arch. Results Reviewed Results Reviewed: Podiatry X-ray Read: 08/15/2025 X-ray right foot 3 views (AP, MO, Lateral) reviewed which shows asymmetric narrowing with perichondral cyst formation of the right 1st 2nd and 3rd metatarsophalangeal with flattening of the metatarsal heads. Fourth metatarsal head mild flattening with subchondral cyst formation and medial deviation of the 4th toe. Sclerosis and flattening/remodeling of the navicular. I personally reviewed the imaging and my findings are listed above. Podiatry X-ray Read: 08/15/2025 X-ray right ankle 3 views (AP, Mortise, Lateral) reviewed which shows flattening of the talar dome with large tibial subchondral cyst measuring 6 mm x 8 mm. Asymmetric joint space narrowing of the tibiotalar joint. I personally reviewed the imaging and my findings are listed above. Assessment & Plan Assessment & Plan (1) Polyarthralgia: Code(s): M25.50 - Pain in unspecified joint Category: Medical Plan: * Rx Medrol Dosepak (2) Polyarthritis: Code(s): M13.0 - Polyarthritis, unspecified Category: Medical Plan: * Pending rheumatology appointment. The patient states she has a family history of rheumatoid arthritis. * She was recommended going to her primary care physician and getting worked up for her rheumatoid arthritis. (3) Ankle arthritis: Code(s): M19.079 - Primary osteoarthritis, unspecified ankle and foot Category: Medical Plan: * Reviewed right foot and ankle x-rays. * Explained that she has arthritic changes to her ankle joint with remodeling of the talus. In the setting of no trauma, these findings are consistent with systemic inflammatory condition. * Discussed that she may require a joint aspiration versus cortisone injection in the future. * She may require an AFO brace if her symptoms do not improve after Rheumatology workup and treatment. * The patient may be a candidate for cartilage resurfacing if her ankle joint improves after starting systemic medication, or eventually requiring ankle fusion in the future. * Follow up in 2 months (4) Hallux rigidus of both feet: Code(s): M20.21 - Hallux rigidus, right foot; M20.22 - Hallux rigidus, left foot Category: Medical Plan: * Discussed orthotics in the future which would include a Tripathi's extension. Medications: New methylprednisolone (Medrol (Pal)) Take 6 tablets on day 1, 5 tablets on day 2, 4 tablets on day 3, 3 tablets on day 4, 2 tablets on day 5, and 1 tablet on day 6. 4 mg PO PER PKG DIR 21 ea 0RF polyarthritis M13.0 - Polyarthritis, unspecified, M25.50 - Pain in unspecified joint Coding Level of Care Code Est Pt Level 3 (91550) Diagnoses Polyarthralgia M25.50 Polyarthritis M13.0 Ankle arthritis M19.079 Hallux rigidus of both feet M20.21; M20.22 Time Spent (min) 20
[2025-10-04 13:37] VITALS: BMI 32.3
== END 2025-10-04 13:55 | disposition home or self-care (01) ==
LOC: HO.HPODS 13:11
PROVIDERS: PCP Internal Medicine; Visit Provider Student in an Organized Health Care Education/Training Program
DX: M25.50 Pain in unspecified joint (principal); M19.079 Primary osteoarthritis, unspecified ankle and foot; M20.21 Hallux rigidus, right foot; M20.22 Hallux rigidus, left foot
CPT/HCPCS: 99213

== ENCOUNTER → 2025-10-04 13:10 | Outpatient (BNVA) | payer MEDICAID, SELFPAY | PROVIDERS: PCP Internal Medicine; Visit Provider Student in an Organized Health Care Education/Training Program | DX: M25.50 Pain in unspecified joint (principal); M19.079 Primary osteoarthritis, unspecified ankle and foot; M20.21 Hallux rigidus, right foot; M20.22 Hallux rigidus, left foot | CPT/HCPCS: 99212 ==

== ENCOUNTER 2025-10-07 14:50 | Emergency (ER) | payer MEDICAID, SELFPAY ==
--- NOTE | ~2025-10-07 | XR_ITS ---
CLINICAL HISTORY: chest pain 1 view chest x-ray. Comparison: None Findings: No consolidation or effusion. Cardiac and mediastinal contours appear unremarkable. Bones unremarkable. Impression: 1. No acute pulmonary disease. This document has been electronically signed by: Jose Angel Pike MD on 10/07/2025 16:35:12
[2025-10-07 15:05] VITALS: BP 120/88; PULSE 87; RESP 18; TEMP 36.9; O2SAT 98; BMI 31.6
--- NOTE | 2025-10-07 15:12 | ED_ITS ---
HPI - General Adult General Chief complaint: Arrhythmia/Palpitations Stated complaint: Pain at neck going down left arm Time Seen by Provider: 10/07/25 17:49 Source: patient Mode of arrival: ambulatory Limitations: no limitations History of Present Illness ED Provider: HPI narrative: 29-year-old woman presenting with upper back pain, neck pain no trauma no weakness in upper or lower extremities, chest pain is also anterior worse with movement nonpruritic no fevers or chills no nausea or vomiting reported. Related Data Previous Rx's ?Medication ?Instructions ?Recorded naproxen 500 mg tablet 500 mg PO BID PRN pain #20 t abs 11/20/20 naproxen 500 mg tablet 500 mg PO BID PRN pain #20 t abs 11/20/20 cyclobenzaprine 5 mg tablet 5 mg PO TID PRN muscle spa sm #14 07/27/21 tabs ibuprofen 600 mg tablet 600 mg PO Q8H PRN pain #14 t abs 07/27/21 lidocaine 5 % topical patch 1 patch topical DAILY #15 ea 07/27/21 (Lidoderm) cyclobenzaprine 5 mg tablet 5 mg PO Q8H PRN pain (scal e score 08/05/21 7-10) 5 days #14 tabs lidocaine 5 % topical patch 1 patch topical DAILY PRN pain #30 08/05/21 (Lidoderm) ea naproxen 500 mg tablet 500 mg PO BID PRN pain 10 da ys #20 08/05/21 tabs ondansetron 4 mg disintegrating 4 mg PO Q6H PRN nausea and 11/14/23 tablet vomiting #14 tabs benzocaine 15 mg-menthol 2.6 mg 1 fsetus mucous membrane Q2-4H PRN 02/20/24 lozenges (Cepacol Sore Throat sore throat #16 ea (benzocaine-menthol)) penicillin V potassium 500 mg 500 mg PO BID 10 days #2 0 tabs 02/20/24 tablet penicillin V potassium 500 mg 500 mg PO BID #19 tabs 0 02/07/25 tablet methylprednisolone 4 mg tablets in 4 mg PO PER PKG DIR arthritis #21 09/07/25 a dose pack ea methylprednisolone 4 mg tablets in 4 mg PO PER PKG DIR polyarthritis 10/04/25 a dose pack (Medrol (Pal)) #21 ea cyclobenzaprine 5 mg tablet 5 mg PO TID PRN muscle spa sm 2 10/07/25 days #7 tabs lidocaine 4 % topical patch 1 patch topical DAILY PRN pain 7 10/07/25 (Aspercreme (lidocaine)) days #10 ea potassium chloride 20 mEq oral 20 meq PO BID 10 days # 30 ea 10/07/25 packet Allergies Allergy/AdvReac Type Severity Reaction Status Date / Time oxycodone (From PERCOCET) Allergy Unknown RASH Verified 10/07/25 15:07 Review of Systems 2 Constitutional: Constitutional: Reports as per HPI [facility] Past Medical History Surgical History History of cholecystectomy Social History Social History Smoked in Last 30 Days: No Use of substances other than those prescribed or required for medical reasons: No Advance Directives: No Advance Directives Information Provided: Yes Do you have a plan to hurt others: No Plan Patient : No Physical Exam ED Exam Exam: General: ?Appears of stated age ? ?PERRLA, EOMI, MMM, ? Neck: Supple, no LAD, tender over the upper back and trapezius ? ?CV: RRR, no obvious murmurs appreciated radial pulses +2, chest wall tenderness to the left of the sternum ? ?Resp: ?No wheezing rales rhonchi no stridor moving air well ? Abd: ?Bowel sounds are present, no tenderness no rebound no rigidity ? ?MSK: FROM, strength 5/5 all extremities ? Skin: Warm, dry, intact, ? ?Neuro: ?Alert and oriented x3, moving upper and lower extremities symmetrically, no obvious facial asymmetry noted, cranial nerves 2-12 intact Vital Signs: Vital Signs - 24 hr 10/07/25 15:05 10/07/25 19:00 Temperature 98.4 F 98.4 F Pulse Rate 87 87 Respiratory Rate 18 18 Blood Pressure 120/88 120/88 Pulse Oximetry 98 98 Oxygen Delivery Method Room Air Room Air BMI result Body Mass Index 31.6 Course Course Course Narrative: RME: 29-year-old female presents to ED for left-sided neck pain radiating to chest down left arm left back for the past couple of days. Patient denies any rash recent trauma recent travel or recent surgery. Labs EKG chest x-ray ordered Medications Administered Discontinued Medications Generic Name Dose Route Start Last Admin Trade Name Freq PRN Reason Stop Dose Admin Potassium Chloride 40 meq 10/07/25 17:26 10/07/25 17:51 Potassium Chloride Er 20 Meq Tab.Er.Prt PO 10/07/25 17:27 40 meq ONCE ONE Administration Potassium Chloride 40 meq 10/07/25 17:26 10/07/25 17:52 Potassium Chloride Packet 20 Meq Packet PO 10/07/25 17:27 40 meq ONCE ONE Administration Medical Decision Making Medical Decision Making [facility] Narrative: 6:33 PM 10/07/2025 (Dr. Alvino Evans): Patient unrelated of the was found to have hypokalemia without EKG changes, she is not experiencing pleurisy, no hypoxia, examination with a tenderness along the sternum and then upper back, did not feel further workup with D-dimer or CT angio is indicated, chest x-ray without pneumonia, pneumothorax, EKG nondiagnostic for ACS or myocarditis or pericarditis clinically appears to be consistent with costochondritis Differential Diagnosis Differential Diagnoses: The differential diagnosis associated with the presentation includes (ACS, pneumothorax, aortic dissection, PE, Boerhaave syndrome) Admission/Observation Consideration of admission/observation: Escalation of care including admission/observation considered Lab Data [facility] Lab Attestation statement: I reviewed the patient's lab results. 10/07/25 15:47 10/07/25 15:47 Labs: Lab Results 10/07/25 Range/Units 15:47 WBC 8.0 (4.8-10.8) X10*3/uL RBC 4.35 (4.20-5.50) X10*6/uL Hgb 12.7 (12.0-16.0) g/dl Hct 38.4 (37.0-47.0) % MCV 88.3 (80.0-98.0) fL MCH 29.2 (27.0-33.0) pg MCHC 33.1 (31.0-35.0) g/dl RDW 13.1 (11.0-16.0) % Plt Count 249 (160-400) X10*3/uL MPV 11.7 (9.4-12.3) fL Immature Gran % (Auto) 0.3 (0.0-0.4) % Neut % (Auto) 50.1 (45-73) % Lymph % (Auto) 39.9 (20-40) % Mellette % (Auto) 7.9 (2-11) % Eos % (Auto) 0.9 (0-4) % Baso % (Auto) 0.9 (0-2) % Lymph # (Auto) 3.2 (1.2-4.9) X10*3/uL Mellette # (Auto) 0.6 (0.1-1.2) X10*3/uL Eos # (Auto) 0.1 (0.0-0.4) X10*3/uL Baso # (Auto) 0.1 (0.0-0.2) X10*3/uL Abs Immat Gran (auto) 0.02 (0.00-0.03) X10*3/uL Absolute Neuts (auto) 4.0 (2.0-8.3) x10*3/uL Absolute Nucleated RBC 0.000 (0.0-0.012) X10*3/uL Nucleated RBC % (auto) 0.0 (0.0-0.2) /100WBC PT 13.4 (11.2-13.5) SEC INR 1.1 (0.9-1.1) APTT 30.7 (26.7-34.1) SEC Sodium 141 (135-145) mmol/L Potassium 2.8 L* D (3.3-5.1) mmol/L Chloride 105 (96-108) mmol/L Carbon Dioxide 26 (22-29) mmol/L Anion Gap 13 (12-20) BUN 15 (9-16) mg/dL Creatinine 0.61 (0.5-1.4) mg/dL Estim Creat Clear Calc 115.6 Estimated GFR > 60 Random Glucose 98 (60-115) mg/dL Calcium 9.2 (8.4-10.2) mg/dL Magnesium 2.1 (1.6-2.6) mg/dL Total Bilirubin 0.8 (0.0-1.0) mg/dL AST 27 (5-31) U/L ALT 25 (0-31) U/L Alkaline Phosphatase 58 (39-117) U/L Troponin I High Sens 3.7 (<3.5-17.0) ng/L NT-Pro-B Natriuret Pep 25.9 (<300) pg/mL Total Protein 7.3 (6.5-8.0) g/dL Albumin 4.4 (3.5-5.0) g/dL Beta HCG, Quant < 2 mIU/mL Independent Interpretation I performed an independent interpretation of an: EKG (100 beats per minute otherwise normal ECG without dysrhythmia, AV sabra blocks or ST-T changes to suspect underlying ACS, my independent interpretation) and Plain X-Ray (My independent chest xray interpretation: Lungs: Lungs are clear bilaterally without evidence of focal consolidation, pleural effusion, or pneumothorax. Cardiac silhouette is unremarkable, no obvious mediastinal widening, no obvious bony abnormalities such as fractures. Impression: Normal chest X-r) Radiology Impression Discussion of test interpretation with radiology: I have reviewed the radiologist's reading. (Impression: 1. No acute pulmonary disease.) Prescription Management I considered prescription management with: Pain Medication Discharge Plan Discharge Clinical Impression: Acute upper back pain, Chest pain, precordial, Hypokalemia Patient Disposition: Home, Self-Care Instructions: Chest Pain (ED), Back Pain (ED) Additional Instructions: I see that you have taken cyclobenzaprine for spasms, this is similar pain that you have had, I would recommend cyclobenzaprine, lidocaine patches, you can use ibuprofen 400 mg every 6 hours around the clock, unrelated you were found to have low potassium and I will prescribe medications for potassium as well, the rest of the workup EKG chest x-ray blood work has been reassuring. Take potassium twice daily for the next 7-10 days but you need to follow up with the your primary care provider for re-evaluation Prescriptions: New lidocaine [Aspercreme (lidocaine)] 4 % adhesive patch,medicated 1 patch topical DAILY PRN (Reason: pain) 7 Days Qty: 10 0RF cyclobenzaprine 5 mg tablet 5 mg PO TID PRN (Reason: muscle spasm) 2 Days Qty: 7 0RF potassium chloride 20 mEq packet 20 meq PO BID 10 Days Qty: 30 0RF No Action lidocaine [Lidoderm] 5 % adhesive patch,medicated 1 patch topical DAILY Qty: 15 0RF Rx Instructions: leave on most painful area for up to 12 hrs ibuprofen 600 mg tablet 600 mg PO Q8H PRN (Reason: pain) Qty: 14 0RF cyclobenzaprine 5 mg tablet 5 mg PO TID PRN (Reason: muscle spasm) Qty: 14 0RF naproxen 500 mg tablet 500 mg PO BID PRN (Reason: pain) Qty: 20 0RF naproxen 500 mg tablet 500 mg PO BID PRN (Reason: pain) Qty: 20 0RF lidocaine [Lidoderm] 5 % adhesive patch,medicated 1 patch topical DAILY MDD remove after 12 hours PRN (Reason: pain) Qty: 30 0RF Rx Instructions: leave on most painful area for up to 12 hrs naproxen 500 mg tablet 500 mg PO BID PRN (Reason: pain) 10 Days Qty: 20 0RF cyclobenzaprine 5 mg tablet 5 mg PO Q8H PRN (Reason: pain (scale score 7-10)) 5 Days Qty: 14 0RF ondansetron 4 mg tablet,disintegrating 4 mg PO Q6H PRN (Reason: nausea and vomiting) Qty: 14 0RF penicillin V potassium 500 mg tablet 500 mg PO BID 10 Days Qty: 20 0RF Cepacol Sore Throat (leigh-men) 15-2.6 mg lozenge 1 festus mucous membrane Q2-4H PRN (Reason: sore throat) Qty: 16 0RF penicillin V potassium 500 mg tablet 500 mg PO BID Qty: 19 0RF methylprednisolone 4 mg tablets,dose pack 4 mg PO PER PKG DIR Qty: 21 0RF Rx Instructions: Take 6 tablets on day 1, 5 tablets on day 2, 4 tablets on day 3, 3 tablets on day 4, 2 tablets on day 5, and 1 tablet on day 6. methylprednisolone [Medrol (Pal)] 4 mg tablets,dose pack 4 mg PO PER PKG DIR Qty: 21 0RF Rx Instructions: Take 6 tablets on day 1, 5 tablets on day 2, 4 tablets on day 3, 3 tablets on day 4, 2 tablets on day 5, and 1 tablet on day 6. Referrals: Marisa Merino MD [Primary Care Provider, Internal Medicine] - 1 week Clinical Impression: Hypokalemia Interventions: ED Discharge Assessment Last Done: 10/07/25 19:00 Discharge Date/Time: 10/07/25 19:01 Print Language: Finnish
--- NOTE | 2025-10-07 15:14 | ECG_ITS ---
Test Reason : LEFT SIDED NECK PAIN Blood Pressure : */* mmHG Vent. Rate : 100 BPM Atrial Rate : 100 BPM P-R Int : 146 ms QRS Dur : 74 ms QT Int : 356 ms P-R-T Axes : 48 23 36 degrees QTcB Int : 459 ms Normal sinus rhythm Normal ECG When compared with ECG of 07-Feb-2025 00:19, No significant change was found Referred By: Dg He Electronically Signed By: BARB MARMOLEJO MD
--- OUTSIDE RECORDS SUMMARY | 2025-10-07 15:42 | XMS_ITS | Clinical Summary ---
Author Organization [facility] it Address [address] [place] [address] Care Team Providers Care Test Desk Trouble Locator Name Role Phone Marisa Merino MD Primary Care Provider [phone] Social History Tobacco Use Types Packs/Day Years [...] age to complete this topic Care Teams Test Desk Trouble Locator Relationship Specialty Start Date End Date Marisa Merino MD [address] [place] [address] [place] [address] PCP - General 06/26/24
[2025-10-07 16:39] LABS: MANUAL DIFF FLAG NO
[2025-10-07 16:52] LABS: INTERNATIONAL NORM RATIO 1.1 (0.9-1.1); Prothrombin Time 13.4 SEC (11.2-13.5)
[2025-10-07 16:55] LABS: Partial Thromboplastin Time 30.7 SEC (26.7-34.1)
[2025-10-07 17:09] LABS: Hematocrit 38.4 % (37.0-47.0); Hemoglobin 12.7 g/dl (12.0-16.0); Imm Gran Abs Auto 0.02 X10*3/uL (0.00-0.03); Imm Gran Pct Auto 0.3 % (0.0-0.4); Lymphocytes Absolute Auto 3.2 X10*3/uL (1.2-4.9); Mean Corpuscular HGB Conc 33.1 g/dl (31.0-35.0); Mean Corpuscular Hemoglobin 29.2 pg (27.0-33.0); Mean Corpuscular Volume 88.3 fL (80.0-98.0); NRBC Abs Auto 0.000 X10*3/uL (0.0-0.012); NRBC Pct Auto 0.0 /100WBC (0.0-0.2); Platelet Count 249 X10*3/uL (160-400); Red Blood Count 4.35 X10*6/uL (4.20-5.50); White Blood Count 8.0 X10*3/uL (4.8-10.8)
[2025-10-07 17:16] LABS: Alanine Aminotransferase 25 U/L (0-31); Albumin Level 4.4 g/dL (3.5-5.0); Alkaline Phosphatase 58 U/L (39-117); Anion Gap 13 (12-20); Aspartate Amino Transferase 27 U/L (5-31); Blood Urea Nitrogen 15 mg/dL (9-16); Calcium 9.2 mg/dL (8.4-10.2); Carbon Dioxide 26 mmol/L (22-29); Chloride 105 mmol/L (96-108); Creatinine Clr Calc Pharmacy 115.6; Estimated Glomerular Filt Rate > 60; Potassium 2.8 mmol/L (3.3-5.1); Sodium 141 mmol/L (135-145); Total Protein 7.3 g/dL (6.5-8.0); Troponin-I High Sensitivity 3.7 ng/L (<3.5-17.0)
[2025-10-07] MEDS: Potassium Chloride ER 20 MEQ TAB.ER.PRT 40 MEQ PO (17:51)
[2025-10-07 17:52] LABS: Magnesium 2.1 mg/dL (1.6-2.6)
[2025-10-07] MEDS: Potassium Chloride Packet 20 MEQ PACKET 40 MEQ PO (17:52)
[2025-10-07 18:09] LABS: NT Pro B Type Natriuretic Pept 25.9 pg/mL (<300)
[2025-10-07 19:00] VITALS: BP 120/88; PULSE 87; RESP 18; TEMP 36.9; O2SAT 98
== END 2025-10-07 19:01 | disposition home or self-care (01) ==
PROVIDERS: Physician Assistant; Physician Assistant Medical; Emergency Provider Emergency Medicine; PCP Internal Medicine
DX: I49.9 Cardiac arrhythmia, unspecified (principal); R00.2 Palpitations; M54.50 Low back pain, unspecified; R07.89 Other chest pain; R06.02 Shortness of breath; M54.2 Cervicalgia; Z79.899 Other long term (current) drug therapy
CPT/HCPCS: 36415; 71045; 80053; 83735; 83880; 84484; 84702; 85025; 85610; 85730; 93005; 99283; 99285

== ENCOUNTER → 2025-10-07 15:14 | Outpatient (BNV) | payer MEDICAID, SELFPAY | PROVIDERS: PCP Internal Medicine; Visit Provider Radiology Diagnostic Radiology | DX: R07.9 Chest pain, unspecified (principal) | CPT/HCPCS: 71045 ==

== ENCOUNTER → 2025-10-07 15:14 | Outpatient (BNV) | payer MEDICAID, SELFPAY | PROVIDERS: Emergency Provider Emergency Medicine; PCP Internal Medicine; Visit Provider Internal Medicine Cardiovascular Disease | DX: M54.2 Cervicalgia (principal) | CPT/HCPCS: 93010 ==

== ENCOUNTER 2025-11-13 09:56 | Outpatient (REF) | payer OTHER, SELFPAY ==
[2025-11-13 13:47] LABS: Appearance Urine Turbid; Glucose Urine UA Negative (Negative); PH 5.5 (5.0-9.0); Specific Gravity - Urine 1.025 (1.005-1.025)
[2025-11-13 14:30] LABS: MANUAL DIFF FLAG NO
[2025-11-13 14:46] LABS: Hematocrit 41.7 % (37.0-47.0); Hemoglobin 13.9 g/dl (12.0-16.0); Imm Gran Abs Auto 0.02 X10*3/uL (0.00-0.03); Imm Gran Pct Auto 0.2 % (0.0-0.4); Lymphocytes Absolute Auto 3.0 X10*3/uL (1.2-4.9); Mean Corpuscular HGB Conc 33.3 g/dl (31.0-35.0); Mean Corpuscular Hemoglobin 29.3 pg (27.0-33.0); Mean Corpuscular Volume 88.0 fL (80.0-98.0); NRBC Abs Auto 0.000 X10*3/uL (0.0-0.012); NRBC Pct Auto 0.0 /100WBC (0.0-0.2); Platelet Count 301 X10*3/uL (160-400); Red Blood Count 4.74 X10*6/uL (4.20-5.50); White Blood Count 8.0 X10*3/uL (4.8-10.8)
[2025-11-13 16:08] LABS: Alanine Aminotransferase 24 U/L (0-31); Albumin Level 4.5 g/dL (3.5-5.0); Alkaline Phosphatase 62 U/L (39-117); Anion Gap 11 (12-20); Aspartate Amino Transferase 26 U/L (5-31); Blood Urea Nitrogen 15 mg/dL (9-16); Calcium 9.4 mg/dL (8.4-10.2); Carbon Dioxide 24 mmol/L (22-29); Chloride 107 mmol/L (96-108); Cholesterol 198 mg/dL (<200); Estimated Glomerular Filt Rate > 60; HDL Cholesterol 52 mg/dL (>40); Magnesium 2.1 mg/dL (1.6-2.6); Potassium 3.5 mmol/L (3.3-5.1); Sodium 138 mmol/L (135-145); Total Protein 7.5 g/dL (6.5-8.0); Triglycerides 81 mg/dL (<150)
[2025-11-13 16:25] LABS: Folate 6.1 ng/mL (> or = 4.0); Vitamin B12 349 pg/mL (200-900)
[2025-11-14 04:47] LABS: Syphilis Screen Nonreactive (Nonreactive)
[2025-11-14 05:02] LABS: HBS Num1 26.70 mIU/mL (0-7.99); HIV Num 1 0.09 S/CO (0.00-0.99); ~HepC Num1 0.15 S/CO (0.00-0.79); ~Hepatitis B Surface Antibody REACTIVE (Nonreactive); ~Hepatitis C Antibody Nonreactive (Nonreactive)
[2025-11-14 21:08] LABS: SM/Ribonucleoprotein Ab <1.0 NEG AI (<1.0 NEG); Smith Protein <1.0 NEG AI (<1.0 NEG)
[2025-11-15 13:24] LABS: HBsAGNum1 0.37 S/CO (0.00-0.99); Hepatitis B Surface Antigen Negative (Negative)
[2025-11-17 13:33] LABS: Vitamin D 25-OH, D2 <4 ng/mL; Vitamin D 25-OH, D3 13 ng/mL; Vitamin D 25-OH, Total 13 ng/mL (30-100)
[2025-11-19 11:14] LABS: Anti Nuclear Antibody Screen NEGATIVE (NEGATIVE)
== END 2025-11-13 09:57 | disposition home or self-care (01) ==
LOC: HO.HKASLDS 09:56
PROVIDERS: PCP Student in an Organized Health Care Education/Training Program; Visit Provider Student in an Organized Health Care Education/Training Program
DX: Z13.9 Encounter for screening, unspecified (principal); M25.50 Pain in unspecified joint; M13.0 Polyarthritis, unspecified; M79.10 Myalgia, unspecified site; T78.40XA Allergy, unspecified, initial encounter
CPT/HCPCS: 36415; 80053; 80061; 81003; 82306; 82607; 82746; 83036; 83735; 84443; 85025; 85652; 86038; 86140; 86200; 86225; 86235; 86431; 86706; 86780; 86803; 87340; 87389; 99202

== ENCOUNTER 2025-11-13 09:56 | Outpatient (AMB) | payer OTHER, SELFPAY ==
[2025-11-13 10:00] VITALS: BP 131/79; PULSE 90; TEMP 36.7; O2SAT 97
--- NOTE | 2025-11-13 10:00 | A.OFFPC_ITS ---
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 Kidney problems: She has been struggling with kidney issues, and has seen her doctor several times for kidney pain. She reports confusion as she is being prescribed more medications despite being told that nothing is found. She recently received a 'pill-infusion' for her kidney pain from her doctor, Bisi Das, who practices at [facility]. Arthralgia: The patient has experienced pain in her ankles and knees for the past two months. The pain affects both ankles and both knees. She describes a burning sensation in her ankle. She saw a tactical deception plans officer who suggested it might be rheumatic arthritis but scheduled a follow-up appointment in five months. The tactical deception plans officer offered injections but was hesitant. The patient received a course of steroids which initially helped, but her symptoms worsened after about two to three weeks, prompting another course of steroids. She has also seen a web production artist. Muscle pain: The patient went to the emergency department for muscle pain. She was prescribed cyclobenzaprine 5 mg, a lidocaine patch, and methylprednisolone, which she has finished taking. Preeclampsia: The patient had preeclampsia in 2017 after giving . Surgical History: - The patient denies any past surgeries. Medications: - Cetirizine for allergies - Cyclobenzaprine 5 mg for muscle pain ( no longer taking) - Lidocaine patch for muscle pain (no lo nger using) - Methylprednisolone for pain (course fi nished) Social History: - The patient's is also seen at this practice. Family History: - Sister: High blood pressure, fibromyal robert, sees a tactical deception plans officer. - Mother: Prediabetes, rheumatism. - Grandfather: Rheumatism. Past Medical History - Denies any chronic conditions such as depression, diabetes, or epilepsy. - History of preeclampsia in 2017 after childbirth. - History of emergency department visit for muscle pain. - Under the care of a web production artist and has an upcoming rheumatology appointment. Health Maintenance [facility] Medical History (Updated 11/13/25 @ 12:42 by Jay Wu MD) Allergies Myalgia Surgical History History of cholecystectomy Family History (Updated 11/13/25 @ 10:12 by Iman Crouch CMA) Mother HTN (hypertension) Father No problems noted. Sister HTN (hypertension) Diabetes Social History Housing: Apartment Patient Tobacco Use Status: Never used Tobacco e-Cigarette/Vaping Use: Never Used service: No Current occupational status: employed and unemployed Cognitive needs: No Hearing needs: No Vision needs: Yes (glasses) Questionnaire PHQ-9 Over the last 2 weeks, how often have you been bothered by any of the following problems? 1. Little interest or pleasure in doing things: several days 2. Feeling down, depressed, or hopeless: not at all 3. Trouble falling or staying asleep, or sleeping too much: several days 4. Feeling tired or having little energy: several days 5. Poor appetite or overeating: not at all 6. Feeling bad about yourself - or that you are a failure or have let yourself or your family down: not at all 7. Trouble concentrating on things, such as reading the newspaper or watching television: not at all 8. Moving or speaking so slowly that other people could have noticed. Or the opp osite - being so fidgety or restless that you have been moving around a lot more than usual: not at all 9. Thoughts that you would be better off or of hurting yourself in some way: not at all Total score: 3 Depression Screening Interpretation: Negative Depression Screening Done: Yes Source: Developed by Scot Elleret B.W. Dion, Marcel Pacheco and colleagues, with an educational karen from [employer]. Thrive Questionnaire Date Thrive assessed: 11/13/25 I am a: Patient What is your living situation today?: I have a steady place to live Within the past 12 months, did the food you bought not last and you didn't have the money to get more?: I choose not to answer this question Within the past 12 months, did you worry whether your food would run out before you got money to buy more?: I choose not to answer this question Do you have trouble paying for medicines?: No Do you have trouble getting transportation to medical appointments?: No Do you have trouble paying your heating and electricity bill?: No Do you have trouble taking care of your child, family member or friend?: No Do you have trouble with day-to-day activities such as bathing, preparing meals, shopping, managing finances, etc.?: No Are you currently unemployed and looking for a job?: Yes Are you interested in more education?: I choose not to answer this question Please select the resources that you would like help with: None Currently or been in a relationship where the following occur: No concerns repo rted THRIVE Score: 0 AUDIT C Alcohol Use Questionnaire (AUDIT-C) 1. How often do you have a drink containing alcohol?: Never Total Score: 0 SHON-7 AMB Questionnaire SHON-7 Date SHON - 7 assessed: 11/13/25 Feeling nervous, anxious, or on edge: 0 = Not at all Not being able to stop or control worryin = Not at all Worrying too much about different things: 0 = Not at all Trouble relaxin = More than half the days Being so restless that it is hard to sit still: 2 = More than half the days Becoming easily annoyed or irritable: 0 = Not at all Feeling afraid as if something awful might happen: 0 = Not at all Total SHON-7 score (0-4 normal; 5-9 mild; 10-14 moderate; 15-21 severe): 4 Source: Developed by Reva Eller, Marcel Pacheco and colleagues, with an educational karen from [employer]. Review of Systems Narrative Review of Systems - General: Denies depression, diabetes, or epilepsy. - Renal: Reports issues with her kidneys and kidney pain. - Musculoskeletal: Reports muscle pain. - Joint: Reports pain in ankles and knees for 2 months, describing a burning sensation in the ankle. - Neurological: Reports poor sleep due to pain. 10-point ROS reviewed and negative except as noted in HPI Physical exam (Primary Care) Vital Signs: Last Vital Signs Temp 98.0 F 11/13/25 10:00 Pulse 90 11/13/25 10:00 BP 131/79 11/13/25 10:00 Pulse Ox 97 11/13/25 10:00 Oxygen Delivery Method Room Air 11/13/25 10:00 Tobacco/Smoking Status: Tobacco use Status Tobacco use date assessed 11/13/25 11/13/25 10:04 Patient Tobacco Use Status Never used Tobacco 11/13/25 10:04 e-Cigarette/Vaping Use Never Used 11/13/25 10:04 PHQ-9: PHQ-9 Score PHQ-9: Total score 3 11/13/25 10:12 Depression Screening Interpretation: Negative Thrive Assessment: Date of Thrive Assessment Date Thrive assessed 11/13/25 11/13/25 10:12 Currently or been in a relationship where the following occur: No concerns reported Narrative Physical Exam General: Well-appearing, in no acute distress. Vital signs: Within normal limits. HEENT: Normocephalic, atraumatic. PERRLA, EOMI. Conjunctiva clear, sclera anicteric. Oropharynx clear, mucous membranes moist. TMs intact bilaterally. Neck: Supple, no lymphadenopathy, no thyromegaly, no JVD or carotid bruits. Cardiovascular: RRR, normal S1/S2, no murmurs, rubs, or gallops. Peripheral pulses 2+ and symmetric. No edema. Respiratory: Lungs clear to auscultation bilaterally, no wheezes, rales, or rhonchi. Normal effort. Abdomen: Soft, non-tender, non-distended. Normoactive bowel sounds. No hepatosplenomegaly, no masses. MSK: Full range of motion, no joint swelling or deformity. Normal gait. Crepitus noted in both knees, more pronounced on the right side. Pain reported in both ankles and knees. Skin: Warm, dry, intact. No rashes, lesions, or pallor. Neuro: Alert and oriented x3. Cranial nerves II-XII intact. Strength 5/5 throughout. Sensation intact. Reflexes 2+ symmetric. Normal coordination and gait. Psych: Appropriate mood and affect. Normal judgment and insight. Reports of depression and anxiety. Coding Level of Care Code New Pt Level 4 (59928) Add On Problem Visit Only Diagnoses Polyarthralgia M25.50 Polyarthritis M13.0 Myalgia M79.10 Allergies T78.40XA Assessment & Plan Assessment & Plan (1) Polyarthralgia: Code(s): M25.50 - Pain in unspecified joint Category: Medical (2) Polyarthritis: Code(s): M13.0 - Polyarthritis, unspecified Category: Medical (3) Myalgia: Code(s): M79.10 - Myalgia, unspecified site Category: Medical (4) Allergies: Code(s): T78.40XA - Allergy, unspecified, initial encounter Category: Medical Plan Consent Patient was informed and verbally consented to the use of an ambient scribe for clinic note documentation during this visit. Plan 1. Kidney Problems - A comprehensive metabolic panel will be ordered to evaluate kidney function. 2. Arthralgia - The patient was advised to call her insurance to find a tactical deception plans officer who can provide a sooner appointment for her joint pain. - Blood work will be ordered to investigate the cause of her symptoms. Discussion Notes I have ordered a comprehensive set of labs to start investigating the patient's symptoms. This includes a CBC, comprehensive metabolic panel, urinalysis, thyroid panel, B12, vitamin D, hepatitis panel, HIV test, lipid panel, blood sugar, and magnesium. I advised the patient that if she has kidney problems, she should not be taking certain medications. I also advised her to check with her insurance for a tactical deception plans officer who can see her sooner than the scheduled five- month wait. Patient Instructions - You should call your insurance company to find a tactical deception plans officer (a specialist for joint problems) who can see you sooner. - We will be drawing your blood today to run several tests to help us understand what is causing your symptoms. Medical Decision Making The patient is a 30-year-old female presenting with a history of kidney problems and a two-month history of joint pain affecting her bilateral ankles and knees, associated with a burning sensation. She has a family history of rheumatic conditions. Given her symptoms and family history, an autoimmune or inflammatory process is suspected. The long wait for a rheumatology appointment is a barrier to diagnosis and treatment, so she has been advised to seek an earlier appointment. To begin the workup, I have ordered a comprehensive set of laboratory tests, including a CBC, CMP, urinalysis, thyroid function tests, vitamin levels, infectious disease screening, and a lipid panel to get a baseline and screen for common causes of her symptoms. These results will help guide further investigation and management while she awaits specialist consultation. Medications she is no longer taking, including cyclobenzaprine and lidocaine patch, have been removed from her active medication list. Total Time Statement 30 min Total time spent caring for the patient today includes pre-visit chart review, documentation, review of laboratory and diagnostic imaging results, medication reconciliation, medically necessary evaluation, counseling on diagnoses, care coordination, ordering appropriate tests and medications, review of tests performed by other providers, reporting test results to the patient, and communication with other healthcare providers. Orders: Orders Complete Blood Count Auto Diff Today Z13.9 - Encounter for screening, unspecified Comprehensive Met. Panel Today Z13.9 - Encounter for screening, unspecified Hepatitis C Antibody Today Z13.9 - Encounter for screening, unspecified Vitamin B12 and Folate Today Z13.9 - Encounter for screening, unspecified Hemoglobin A1c Today Z13.9 - Encounter for screening, unspecified Magnesium Today Z13.9 - Encounter for screening, unspecified Hepatitis B Surface Antibody Today Z13.9 - Encounter for screening, unspecified Vitamin D 25-OH (D2 and D3) Today Z13.9 - Encounter for screening, unspecified Influenza [id number] Immunization Today Z23 - Encounter for immunization C Reactive Protein Today Z13.9 - Encounter for screening, unspecified [place] Reflex Titer and Pattern Today Z13.9 - Encounter for screening, unspecified Cyclic Citrullinated Peptide Today Z13.9 - Encounter for screening, unspecified Anti DNA DS Antibody Today Z13.9 - Encounter for screening, unspecified Sm Sm/PHOTOENGRAVING RETOUCHER Antibodies Today Z13.9 - Encounter for screening, unspecified Hepatitis B Surface Antigen Today Z13.9 - Encounter for screening, unspecified Syphilis Screen Today Z13.9 - Encounter for screening, unspecified TSH reflex Free T4 Today Z13.9 - Encounter for screening, unspecified HIV Ab/Ag Today Z13.9 - Encounter for screening, unspecified UA CC w/rflx Micro + Cult Today Z13.9 - Encounter for screening, unspecified Lipid Panel Today Z13.9 - Encounter for screening, unspecified Erythrocyte Sedimentation Rate Today Z13.9 - Encounter for screening, unspecified Rheumatoid Factor Today Z13.9 - Encounter for screening, unspecified Medications: New Fluarix [id number] (PF) (flu vac ts 2024-(6mos up)-PF) 0.5 mL IM ONCE 0.5 mL 0RF NS Z23 - Encounter for immunization
--- OUTSIDE RECORDS SUMMARY | 2025-11-13 12:03 | XMS_ITS | Clinical Summary ---
Author Organization [facility] ity Address [address] [place] [address] Care Team Providers Care Recycle Driver Name Role Phone Marisa Merino MD Primary Care Provider [phone] Social History Tobacco Use Types Packs/Day Years [...] Screening 09/05/2024 Depression Screening 11/29/2024 COVID-19 Vaccine (1 - 2024-2 6 season) 2025 Influenza Vaccine (#1) 2025 RSV [...] age to complete this topic Care Teams Recycle Driver Relationship Specialty Start Date End Date Marisa Merino MD [address] [place] [address] [place] [id number] PCP - General 06/26/24
== END 2025-11-13 10:39 | disposition home or self-care (01) ==
LOC: HO.HMCFMS 09:57
PROVIDERS: PCP Internal Medicine; Visit Provider Student in an Organized Health Care Education/Training Program
DX: M25.50 Pain in unspecified joint (principal); M13.0 Polyarthritis, unspecified; M79.10 Myalgia, unspecified site; T78.40XA Allergy, unspecified, initial encounter

== ENCOUNTER 2025-11-27 14:57 | Outpatient (AMB) | payer OTHER, SELFPAY ==
--- NOTE | 2025-11-27 15:02 | A.OFFPC_ITS ---
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 Required: No Accompanied by: Self / Same As Patient Allergies oxycodone (From PERCOCET) Allergy (Unknown, Verified 11/27/25 15:03) RASH Medication List - Last Reconciled 11/28/25 by Jay Wu MD cetirizine 10 mg PO DAILY ergocalciferol (vitamin D2) 1,250 mcg PO QWEEK naproxen 500 mg PO BID PRN nystatin 1 appl topical BID Tobacco use date assessed: 11/13/25 Dental Screening Dental Screen Date: 11/13/25 HPI HPI Comments History of Present Illness Details History of Present Illness The patient is a 30 year old female presenting for a review of recent lab results and to discuss symptoms including muscle pain, joint pain, fatigue, and a skin rash. Vitamin D Deficiency: The patient reports experiencing muscle pain, joint pain, and fatigue. Recent lab work revealed a vitamin D level of 13, which is significantly below the normal range of 30-100. She has had a negative workup for autoimmune conditions, including a negative rheumatoid factor. Hyperlipidemia: Review of the patient's lipid panel shows an LDL cholesterol level of 130, which is elevated above the target of 100. Her total cholesterol, triglycerides, and good cholesterol are within normal limits. Intertrigo: The patient reports a persistent, pruritic rash located between her thighs. Surgical History: - section Social History: - Diet/Nutrition: The patient reports sh e finds it difficult to drink anything other than water. Diagnostic Results: - CBC: Normal white blood cells, red blo od cells, hemoglobin, and hematocrit. - CMP: Sodium, potassium, kidney functio n, liver function, glucose, calcium, and magnesium are normal. - Lipid Panel: LDL cholesterol is elevat ed at 130; total cholesterol and triglycerides are normal. - Vitamin Levels: Vitamin D is low at 13 (normal range 30-100); Vitamin B12 and folate are normal. - Thyroid studies: Normal. - Urinalysis: Normal. - Autoimmune panel: Rheumatoid factor is negative. - Infectious disease screening: Negative for syphilis, hepatitis B, hepatitis C, and HIV. Past Medical History Health Maintenance - Patient has undergone a comprehensive lab workup. - Screening for infectious diseases incl uding syphilis, hepatitis B, hepatitis C, and HIV were all negative. [facility] Medical History Allergies Myalgia Surgical History History of cholecystectomy Family History Mother HTN (hypertension) Father No problems noted. Sister HTN (hypertension) Diabetes Social History (Updated 11/27/25 @ 15:04 by Felipe Dickens CMA) Housing: Apartment Alcohol intake: never Patient Tobacco Use Status: Never used Tobacco e-Cigarette/Vaping Use: Never Used service: No Current occupational status: employed and unemployed Cognitive needs: No Hearing needs: No Vision needs: Yes (glasses) Questionnaire Thrive Questionnaire Date Thrive assessed: 11/06/25 I am a: Patient What is your living situation today?: I have a steady place to live Within the past 12 months, did the food you bought not last and you didn't have the money to get more?: I choose not to answer this question Within the past 12 months, did you worry whether your food would run out before you got money to buy more?: I choose not to answer this question Do you have trouble paying for medicines?: No Do you have trouble getting transportation to medical appointments?: No Do you have trouble paying your heating and electricity bill?: No Do you have trouble taking care of your child, family member or friend?: No Do you have trouble with day-to-day activities such as bathing, preparing meals, shopping, managing finances, etc.?: No Are you currently unemployed and looking for a job?: Yes Are you interested in more education?: I choose not to answer this question Currently or been in a relationship where the following occur: No concerns reported THRIVE Score: 0 SHON-7 AMB Questionnaire SHON-7 Date SHON - 7 assessed: 11/13/25 Source: Developed by Drs. Abraham Flynn, Reva BMarcel Salgado and colleagues, with an educational karen from [email or web address]. Review of Systems Narrative Review of Systems - Constitutional: Reports fatigue. - Musculoskeletal: Reports muscle pain and joint pain; also reports back pain that is muscular in nature. - Integumentary: Reports a persistent, itchy rash between her thighs. - Genitourinary: Denies kidney-related pain. 10-point ROS reviewed and negative except as noted in HPI Physical exam (Primary Care) Vital Signs: Last Vital Signs Temp 98.2 F 11/27/25 15:04 Pulse 72 11/27/25 15:04 Resp 16 11/27/25 15:04 BP 139/90 H 11/27/25 15:04 Pulse Ox 97 11/27/25 15:04 Oxygen Delivery Method Room Air 11/27/25 15:04 BMI result Body Mass Index 32.4 Tobacco/Smoking Status: Tobacco use Status Tobacco use date assessed 11/13/25 11/27/25 15:06 Patient Tobacco Use Status Never used Tobacco 11/27/25 15:06 e-Cigarette/Vaping Use Never Used 11/27/25 15:06 Thrive Assessment: Date of Thrive Assessment Date Thrive assessed 11/06/25 11/27/25 15:06 Currently or been in a relationship where the following occur: No concerns reported Narrative Physical Exam General: Well-appearing, in no acute distress. Vital signs: Within normal limits. HEENT: Normocephalic, atraumatic. PERRLA, EOMI. Conjunctiva clear, sclera anicteric. Oropharynx clear, mucous membranes moist. TMs intact bilaterally. Neck: Supple, no lymphadenopathy, no thyromegaly, no JVD or carotid bruits. Cardiovascular: RRR, normal S1/S2, no murmurs, rubs, or gallops. Peripheral pulses 2+ and symmetric. No edema. Respiratory: Lungs clear to auscultation bilaterally, no wheezes, rales, or rhonchi. Normal effort. Abdomen: Soft, non-tender, non-distended. Normoactive bowel sounds. No hepatosplenomegaly, no masses. MSK: Full range of motion, no joint swelling or deformity. Normal gait. Patient reports muscle pain, possibly related to low vitamin D levels. Skin: Warm, dry, intact. Rash present between the thighs, likely intertrigo. No other rashes, lesions, or pallor. Neuro: Alert and oriented x3. Cranial nerves II-XII intact. Strength 5/5 throughout. Sensation intact. Reflexes 2+ symmetric. Normal coordination and gait. Psych: Appropriate mood and affect. Normal judgment and insight. Coding Level of Care Code Est Pt Level 3 (35832) Add On Problem Visit Only Diagnoses Vitamin D deficiency E55.9 Hyperlipidemia E78.5 Intertrigo L30.4 Class 1 obesity E66.811 Myalgia M79.10 Polyarthralgia M25.50 Assessment & Plan Assessment & Plan (1) Vitamin D deficiency: Code(s): E55.9 - Vitamin D deficiency, unspecified Category: Medical (2) Hyperlipidemia: Code(s): E78.5 - Hyperlipidemia, unspecified Category: Medical (3) Intertrigo: Code(s): L30.4 - Erythema intertrigo Category: Medical (4) Class 1 obesity: Code(s): E66.811 - Obesity, class 1 Category: Medical (5) Myalgia: Code(s): M79.10 - Myalgia, unspecified site Category: Medical (6) Polyarthralgia: Code(s): M25.50 - Pain in unspecified joint Category: Medical Plan Consent Patient was informed and verbally consented to the use of an ambient scribe for clinic note documentation during this visit. Plan 1. Vitamin D Deficiency - The patient's symptoms of muscle pain, joint pain, and fatigue are attributed to her severe vitamin D deficiency. - A prescription for high-dose vitamin D was sent, to be taken as one pill once a week for three months. - A follow-up to recheck vitamin D levels is planned in three months. 2. Hyperlipidemia - The patient's LDL cholesterol was noted to be elevated at 130. 3. Intertrigo - The patient has an itchy rash between the thighs, likely intertrigo. - A prescription for topical Nystatin was sent, to be used twice a day. Discussion Notes I reviewed the patient's extensive lab results with her, noting that most values, including her CBC, metabolic panel, and thyroid function, were normal. I pointed out her LDL cholesterol was elevated at 130. I explained that the most significant finding is a severe vitamin D deficiency, with a level of 13, and that this is the likely cause of her symptoms of muscle pain, joint pain, and fatigue. I reassured her that tests for autoimmune and infectious diseases were negative. To address this, I prescribed high-dose vitamin D to be taken once weekly for three months, with a plan to recheck her levels at that time. We also addressed her complaint of a persistent, itchy rash between her thighs, which I assessed as likely intertrigo. I sent a prescription for topical Nystatin to be applied twice daily. Patient Instructions - Take one high-dose vitamin D pill once a week for the next three months. - After three months, you will need to come back to have your vitamin D level checked with a blood test. - For the itchy rash between your thighs, apply the Nystatin cream to the affected area two times each day. Medical Decision Making The patient is a 30-year-old female whose chief complaints of myalgia, arthralgia, and fatigue are well-explained by a laboratory finding of severe vitamin D deficiency (level of 13). Her comprehensive workup was otherwise largely unremarkable, with negative results for autoimmune and infectious etiologies, and normal kidney function, ruling out other common causes for her symptoms. The management plan is to replete her vitamin D with a weekly high- dose prescription for three months, followed by a repeat level. A separate issue of a persistent pruritic rash between her thighs was clinically diagnosed as intertrigo. Given the location and likely fungal etiology, topical Nystatin twice daily is an appropriate first-line treatment. Her mildly elevated LDL of 130 was noted and discussed but does not warrant pharmacologic intervention at this time. Total Time Statement 20 min Total time spent caring for the patient today includes pre-visit chart review, documentation, review of laboratory and diagnostic imaging results, medication reconciliation, medically necessary evaluation, counseling on diagnoses, care coordination, ordering appropriate tests and medications, review of tests performed by other providers, reporting test results to the patient, and communication with other healthcare providers. Medications: New ergocalciferol (vitamin D2) 1,250 mcg PO QWEEK 12 caps 0RF nystatin 1 appl topical BID 30 grams 0RF
[2025-11-27 15:04] VITALS: BP 139/90; PULSE 72; RESP 16; TEMP 36.8; O2SAT 97; BMI 32.4
--- OUTSIDE RECORDS SUMMARY | 2025-11-27 18:33 | XMS_ITS | Clinical Summary ---
Author Organization [facility] ity Address [address] [place] [address] Care Team Providers Care Rn Transitional Name Role Phone Marisa Merino MD Primary Care Provider [phone] Social History Tobacco Use Types Packs/Day Years [...] age to complete this topic Care Teams Rn Transitional Relationship Specialty Start Date End Date Marisa Merino MD [address] [place] [address] [place] [address] PCP - General 06/26/24
== END 2025-11-27 15:25 | disposition home or self-care (01) ==
LOC: HO.HMCFMS 14:58
PROVIDERS: PCP Internal Medicine; Visit Provider Student in an Organized Health Care Education/Training Program
DX: E55.9 Vitamin D deficiency, unspecified (principal); E78.5 Hyperlipidemia, unspecified; L30.4 Erythema intertrigo; E66.811 Obesity, class 1; M79.10 Myalgia, unspecified site; M25.50 Pain in unspecified joint

== ENCOUNTER → 2025-11-27 14:57 | Outpatient (BNVA) | payer OTHER, SELFPAY | PROVIDERS: PCP Internal Medicine; Visit Provider Student in an Organized Health Care Education/Training Program | DX: E55.9 Vitamin D deficiency, unspecified (principal); E78.5 Hyperlipidemia, unspecified; L30.4 Erythema intertrigo; M79.10 Myalgia, unspecified site; M25.50 Pain in unspecified joint; E66.811 Obesity, class 1; Z68.32 Body mass index [BMI] 32.0-32.9, adult; Z71.3 Dietary counseling and surveillance | CPT/HCPCS: 99212 ==